=== PATIENT | female | born 1960 | race Caucasian/White ===

== ENCOUNTER 2018-11-26 23:03 | Observation (INO) ==
[2018-11-26] MEDS ORDERED: DiphenhydrAMINE HCL 50 MG/ML VIAL IV STA (23:22)
[2018-11-26] MEDS ORDERED: EPINEPHrine INJ 1 MG/ML AMP IM STA (23:22)
[2018-11-26] MEDS ORDERED: ALBUTEROL 0.083% NEBU SOLN 3 ML VIAL INH STA (23:22)
[2018-11-26] MEDS ORDERED: methylPREDNISolone 125 MG/2 ML VIAL IV STA (23:22)
[2018-11-26] MEDS ORDERED: FAMOTIDINE 20MG/5ML IV PUSH IV STA (23:22)
[2018-11-26 23:36] LABS: Basophils # (auto) 0.01 K/uL (0-0.2); Basophils % (auto) 0.1 %; Eosinophils # (auto) 0.23 K/uL (0-0.5); Eosinophils % (auto) 2.9 %; Hematocrit (blood only) 41.9 % (37-47); Hemoglobin 13.9 g/dL (12.0-16.0); Immature Granulocytes # (auto) 0.03 K/uL (0.00-0.02); Immature Granulocytes % (auto) 0.4 %; Lymphocytes # (auto) 1.63 K/uL (1.2-3.4); Lymphocytes % (auto) 20.9 %; Mean Corpuscular Hgb Conc 33.2 g/dL (32-36); Mean Corpuscular Volume 90.1 fL (80-100); Mean Platelet Volume 8.7 fL (7.4-10.4); Monocytes % (auto) 5.1 %; Neutrophils # (auto) 5.51 K/uL (1.4-6.5); Neutrophils % (auto) 70.6 %; Platelet Count 206 K/uL (130-400); RDW Coefficient of Variation 13.4 % (11.5-14.5); RDW Standard Deviation 43.6 fL (36.4-46.3); Red Blood Count 4.65 M/uL (4.2-5.4); White Blood Count 7.81 K/uL (4.8-10.8)
[2018-11-26 23:55] LABS: Alanine Aminotransferase 23 U/L (12-78); Albumin Level 3.6 gm/dl (3.4-5.0); Aspartate Aminotransferase 13 U/L (15-37); BUN Creatinine Ratio 24.5 (10-20); Blood Urea Nitrogen 24 mg/dl (7-18); Calcium 9.8 mg/dl (8.5-10.1); Carbon Dioxide 25 mmol/L (21-32); Chloride 109 mmol/L (98-107); Creatinine Clr Calc Pharmacy 72.3 ml/min; Est GFR (African American) 71.8; Est GFR (Non-African American) 61.9; Glucose 144 mg/dl (70-99); Potassium 4.1 mmol/L (3.5-5.1); Sodium 138 mmol/L (136-145)
[2018-11-27] LABS: Alkaline Phosphatase 88 U/L (45-117); Bilirubin,Total 0.3 mg/dl (0.2-1); Globulin 3.7 gm/dl (2.5-4.0); Total Protein 7.3 gm/dl (6.4-8.2); Troponin I < 0.015 ng/ml (0-0.045)
--- NOTE | 2018-11-27 01:24 | Emergency Department Note ---
Entered by Casie Jain acting as a scribe for History of Present Illness General Chief complaint: Allergic Reaction Stated complaint: DIFFICULTY BREATHING, ALLERGIC REACTION Source: patient Mode of arrival: ambulatory Limitations: no limitations History of Present Illness Onset (ago): hour(s) 1 Location: mouth Radiation: non-radiation Pain Consistency: + constant Relieved By: + none Exacerbated By: + none Associated symptoms: + chest pain Treatments prior to arrival: none The patient is a 58 year old female who presents to the Emergency Room with complaints of a possible allergic reaction. She states she went to bed around 2130 this evening and woke up around 2230 feeling unable to breathe and experiencing some transient upper back pain. She notes she took 2 Advil liquid gels prior to going to sleep for arthritis pain, and states she has never taken that type of medication before. She reports she feels like her throat is swollen shut and she is having difficulty speaking and breathing. Denies any rash or pruritus. Is on lisinopril. No other new exposures reported. No recent fevers or trauma. Home Medications Home Medications Medication Instructions Recorded Confirmed Type aspirin 81 mg PO DAILY 11/27/18 11/27/18 History furosemide 20 mg PO DAILY PRN 11/27/18 11/27/18 History lisinopril 10 mg PO DAILY 11/27/18 11/27/18 History lorazepam 1 mg PO Q6 PRN 11/27/18 11/27/18 History omeprazole 20 mg PO DAILY PRN 11/27/18 11/27/18 History rosuvastatin 20 mg PO DAILY 11/27/18 11/27/18 History spironolactone 25 mg PO DAILY 11/27/18 11/27/18 History Allergies Allergy/AdvReac Type Severity Reaction Status Date / Time LILIAN Inhibitors Allergy Severe angioedema Verified 11/27/18 02:28 hydrochlorothiazide Allergy Unknown Unknown Verified 11/27/18 01:39 naproxen Allergy Unknown Unknown Verified 11/27/18 01:39 Past Med/Surg History Medical History Arthritis Social History Feels Safe at Home: Yes Smoking Status: Never smoker Review of Systems See HPI for pertinent positives & negatives. and A total of 10 systems reviewed and were otherwise negative Physical Exam Vital Signs Vital Signs - 24 hr 11/26/18 23:11 11/26/18 23:41 11/27/18 01:26 Temperature 36.8 C Temperature Source Oral Sepsis Recent Fever Within 48 Hours No Sepsis Action Taken by Nursing No Action Required Pulse Rate 95 H Pulse Rate [Right] 84 87 Respiratory Rate 24 24 16 Respiratory Effort / Characteristics Non-Labored Spontaneous Non-Labored Spontaneous Respiratory Depth Normal Normal Blood Pressure 186/105 H Blood Pressure [Right Arm] 150/74 H 117/62 Blood Pressure Mean 132 Blood Pressure Mean [Right Arm] 99 80 Blood Pressure Position [Right Arm] Sitting Pulse Oximetry 98 98 98 Oxygen Delivery Method Room Air Room Air Room Air 11/27/18 02:37 Temperature Temperature Source Sepsis Recent Fever Within 48 Hours Sepsis Action Taken by Nursing Pulse Rate 88 Pulse Rate [Right] Respiratory Rate 16 Respiratory Effort / Characteristics Respiratory Depth Blood Pressure 119/70 Blood Pressure [Right Arm] Blood Pressure Mean Blood Pressure Mean [Right Arm] Blood Pressure Position [Right Arm] Pulse Oximetry 98 Oxygen Delivery Method Room Air GENERAL: Awake, alert, mildly uncomfortable-appearing sitting up on litter HENT: Normocephalic, atraumatic. Diffuse uvular swelling noted in mouth without deviation. No lymph nodes noted. No stridor but hoarse voice noted. EYES: Normal conjunctiva. Sclera non-icteric. NECK: Supple. No nuchal rigidity. RESPIRATORY: Clear to auscultation. No wheezes. Normal respiratory effort. CARDIAC: Normal rate. Normal rhythm. Extremities warm and well perfused. GI: Soft, non-distended. No tenderness to palpation. No rebound or guarding. RECTAL: Deferred. MUSCULOSKELETAL: Atraumatic. Chest examination reveals no tenderness. No upper back tenderness. LOWER EXTREMITIES: Calves are equal size bilaterally and non-tender. No edema NEURO: Normal sensorium. No sensory or motor deficits noted. No facial droop. SKIN: Warm and dry. No rash or jaundice noted. Course 231: Past medical records reviewed. The patient was evaluated in room A2, and a complete history and physical examination were performed. 0100: I reevaluated the patient. She is resting comfortably. I discussed my recommendation she remain in the hospital for further evaluation and management and she verbalized complete understanding and agreement. 0113: I discussed the patients case with Dr. Cook. The patient will be further evaluated. Consultations Consultation #1: I discussed the patients case with Dr. Cook. The patient will be further evaluated. Time: 01:13 Administered Medications Ioversol (Optiray 320 100ml) 100 ml IV ONCE PRN PRN Reason: Interaction Checking Stop: 12/01/18 03:02 Last Admin: 11/27/18 03:04 Dose: 94 ml Discontinued Medications Albuterol (Ventolin 0.083% 2.5mg/3ml) 2.5 mg INH NOW STA Stop: 11/26/18 23:23 Last Admin: 11/26/18 23:30 Dose: 2.5 mg Diphenhydramine HCl (Benadryl) 50 mg IV NOW STA Stop: 11/26/18 23:23 Last Admin: 11/26/18 23:31 Dose: 25 mg Epinephrine HCl (Epinephrine) 0.3 mg IM NOW STA Stop: 11/26/18 23:23 Last Admin: 11/26/18 23:30 Dose: 0.3 mg Famotidine (Pepcid 20mg Iv Push) 20 mg IV ONE STA Stop: 11/26/18 23:23 Last Admin: 11/26/18 23:30 Dose: 20 mg Methylprednisolone (Solumedrol) 125 mg IV NOW STA Stop: 11/26/18 23:23 Last Admin: 11/26/18 23:31 Dose: 125 mg Medical Decision Making Differential Diagnosis Differential: Allergic Reaction, Urticaria, Anaphylaxis, Angioedema, Epiglotitis , BENCH WORKER, RPA, Goff-Mukesh Syndrome, Toxic Epidermal Necrolysis, Erythema Multiforme, Cellulitis, amongst other etiologies entertained. Medical Records Attestation: I reviewed the patient's medical records. Home Medications Current Medication List: was personally reviewed by me Laboratory Data Attestation: I reviewed the patient's lab results. Result diagrams: 11/26/18 23:25 11/26/18 23:25 Lab Results 11/26/18 11/26/18 Range/Units 23:25 23:25 WBC 7.81 (4.8-10.8) K/uL RBC 4.65 (4.2-5.4) M/uL Hgb 13.9 (12.0-16.0) g/dL Hct 41.9 (37-47) % MCV 90.1 (80-100) fL MCH 29.9 (25-34) pg MCHC 33.2 (32-36) g/dL RDW Std Deviation 43.6 (36.4-46.3) fL RDW Coeff of Gretta 13.4 (11.5-14.5) % Plt Count 206 (130-400) K/uL MPV 8.7 (7.4-10.4) fL Immature Gran % (Auto) 0.4 % Neut % (Auto) 70.6 % Lymph % (Auto) 20.9 % [place] % (Auto) 5.1 % Eos % (Auto) 2.9 % Baso % (Auto) 0.1 % Immature Gran # (Auto) 0.03 H (0.00-0.02) K/uL Neut # (Auto) 5.51 (1.4-6.5) K/uL Lymph # (Auto) 1.63 (1.2-3.4) K/uL [place] # (Auto) 0.40 (0.11-0.59) K/uL Eos # (Auto) 0.23 (0-0.5) K/uL Baso # (Auto) 0.01 (0-0.2) K/uL Sodium 138 (136-145) mmol/L Potassium 4.1 (3.5-5.1) mmol/L Chloride 109 H (98-107) mmol/L Carbon Dioxide 25 (21-32) mmol/L Anion Gap 4.0 (3-11) BUN 24 H (7-18) mg/dl Creatinine 0.99 (0.6-1.2) mg/dl Est Cr Clr Drug Dosing 72.3 ml/min Est GFR ( Amer) 71.8 Est GFR (Non-Af Amer) 61.9 BUN/Creatinine Ratio 24.5 H (10-20) Glucose 144 H (70-99) mg/dl Calcium 9.8 (8.5-10.1) mg/dl Magnesium 1.9 (1.8-2.4) mg/dl Total Bilirubin 0.3 (0.2-1) mg/dl AST 13 L (15-37) U/L ALT 23 (12-78) U/L Alkaline Phosphatase 88 (45-117) U/L Troponin I < 0.015 (0-0.045) ng/ml Total Protein 7.3 (6.4-8.2) gm/dl Albumin 3.6 (3.4-5.0) gm/dl Globulin 3.7 (2.5-4.0) gm/dl Albumin/Globulin Ratio 1.0 (0.9-2) TSH 3.470 (0.300-4.500) uIu/ml Imaging Data Attestation: I personally reviewed and interpreted this imaging study as follows : My Impression: CHEST XRAY No pneumonia, no pneumothorax, no bony injury. NECK XRAY Edema of the epiglottis is seen on X-ray; no foreign body noted. ECG Data Attestation: I personally reviewed and interpreted this ECG as follows: Indication: other (allergic reaction) Rate (beats per minute): 92 Rhythm: normal sinus Findings: + other (normal intervals, normal axis); no PVC, no ST depression and no ST elevation MDM Narrative 58-year-old female with a history of GERD and hypertension presenting today complaining of onset of posterior throat and mouth swelling waking her up shortly prior to arrival. Took for the first time some liquid cap Advil to help with arthritic knee pain, went to bed and woke up with this thorat swelling sensation. States is hard to swallow and that she is hoarse. States she had some transient small amount of posterior upper back pain (gone now) but that resolved and there is no chest pain or shortness of breath. No other rash reported or new exposure. Patient is significantly swollen uvula but no evidence of anterior mouth/lip edema. No uticaria noted or other rash. Given this however did proceed with albuterol treatment, Pepcid, Benadryl, steroids, and intramuscular epinephrine for possible allergic/histamine related response. Not hypotensive. Concern for angioedema. Basic labs and EKG were completed as well as a chest x-ray. Seems less likely to be dissection or PE. EKG and troponin negative and doubt ACS. There are no febrile/infectious symptoms to suggest epiglottitis, RPA, or BENCH WORKER. There is some edema notable on the neck x- ray including some epiglottal thickening. Believe that this is edema. Patient monitored here for 2 hours with very slight improvement on multiple re- evaluations. Given this and the airway concern discussed with [facility] hospitalist for admission for close observation for what seems to be angioedema. Impression & Plan Angioedema, Uvular edema Critical Care Time I have personally spent 35 minutes of critical care time in the direct management of this patient. This includes bedside care, interpretation of diagnostic studies, and testing, discussion with consultants, patient, and family members, and other required patient management activities. These 35 minutes is in excess of all separately billable procedures. Critical Care Time: Yes Total Critical Care Time: 35 Discharge Plan Visit Data Chief Complaint: Allergic Reaction Stated Complaint: DIFFICULTY BREATHING, ALLERGIC REACTION ED Provider: Quincy Fields Discharge Problem: Angioedema, Uvular edema Discharge Instructions Interventions: ED Discharge Assessment Last Done: 11/27/18 02:37 Forms Stand Alone Forms: My [facility] Prescriptions Prescriptions: No Action aspirin 81 mg Tablet,Delayed Release (Dr/Ec) 81 mg PO DAILY RF: 0 spironolactone 25 mg Tablet 25 mg PO DAILY RF: 0 lisinopril 10 mg Tablet 10 mg PO DAILY RF: 0 furosemide 20 mg Tablet 20 mg PO DAILY PRN (Reason: Edema) RF: 0 lorazepam 1 mg Tablet 1 mg PO Q6 PRN (Reason: Anxiety) RF: 0 rosuvastatin 20 mg Tablet 20 mg PO DAILY RF: 0 omeprazole 20 mg Tablet,Delayed Release (Dr/Ec) 20 mg PO DAILY PRN (Reason: Heartburn) RF: 0 Referrals Referrals: Jared Meraz [Primary Care Provider] - The scribe's documentation has been prepared under my direction and personally reviewed by me in its entirety. I confirm that the note above accurately reflects all work, treatment, procedures, and medical decision making performed by me.
[2018-11-27 01:50] LABS: Magnesium 1.9 mg/dl (1.8-2.4)
--- NOTE | 2018-11-27 02:18 | History & Physical Report ---
Date of Service November 27, 2018 Assessment & Plan (1) SOB (shortness of breath): With sensation of throat closure ? Anaphylaxis/angioedema ? NSAIDs, LILIAN inhibitor as possible precipitants Clinical/symptomatic improvement after initial ER intervention Hypertension, stable Systolic murmur hyperlipidemia on statin Rx Hyperglycemia rule out DM OBS Medical telemetry Patient counseled about importance of avoiding other NSAIDs given known history of Naproxen allergy. Appropriate to hold home LILIAN inhibitor given possible angioedema involving the airway, add ACEI to allergy list Substitute Norvasc for BP control Prednisone course Outpatient Allergy consultation TTE RE cardiac murmur, intermittent exertional S OB Check hemoglobin A1c DVT prophylaxis. Lovenox subcu Full code History of Present Illness Chief Complaint: Throat closing, shortness of breath Primary Care Provider: Jared Meraz History obtained from patient, family, and records. Medical history significant for hypertension, hyperlipidemia, urolithiasis. Patient woke up last night with some upper back discomfort. Patient later noted sensation of "throat closing", S OB, trouble swallowing. No actual tongue swelling. No chest pain. No rash, no pruritus. May have had transient symptoms in the past accompanied by tingling sensation on the mouth, spontaneously resolving. Patient noted to be briefly by . Patient had earlier taken nighttime medications along with OTC NSAID pills. Patient has been taking lisinopril for more than 20 years. At the ER, patient received IM epinephrine, Solu-Medrol, Famotidine, Benadryl for possible angioedema/uvulitis. Patient currently feeling better. Medical History as above Surgical History : Urologic procedure, partial hysterectomy Family History : Heart disease, colon cancer, lymphoma, prostate cancer Personal/Social history : Non-smoker, occasional Et[employer] intake, surgical nurse Allergies Allergy/AdvReac Type Severity Reaction Status Date / Time LILIAN Inhibitors Allergy Severe angioedema Verified 11/27/18 02:28 hydrochlorothiazide Allergy Unknown Unknown Verified 11/27/18 01:39 naproxen Allergy Unknown Unknown Verified 11/27/18 01:39 Home Medications Home Medications Medication Instructions Recorded Confirmed Type aspirin 81 mg PO DAILY 11/27/18 11/27/18 History furosemide 20 mg PO DAILY PRN 11/27/18 11/27/18 History lisinopril 10 mg PO DAILY 11/27/18 11/27/18 History lorazepam 1 mg PO Q6 PRN 11/27/18 11/27/18 History omeprazole 20 mg PO DAILY PRN 11/27/18 11/27/18 History rosuvastatin 20 mg PO DAILY 11/27/18 11/27/18 History spironolactone 25 mg PO DAILY 11/27/18 11/27/18 History Past Med/Surg History Medical History Arthritis Social History Current Living Situation: Spouse Other Information That Helps Us Care for You: No Feels Safe at Home: Yes Safety Concerns: Feels Safe At This Time Smoking Status: Never smoker Hx Alcohol Use: No Hx Substance Use: No Beliefs That Will Affect Care: None Preferred Language: [place] Communication Ability: Effective [place] [employer]yer Required: No Review of Systems As per HPI, all 10 systems reviewed, all other ROS negative Physical Exam 2 Vital Signs (Past 24 Hours): Last Vital Signs Temp 36.8 C 11/26/18 23:11 Pulse 87 11/27/18 01:26 Resp 16 11/27/18 01:26 BP 117/62 11/27/18 01:26 Pulse Ox 98 11/27/18 01:26 Physical Exam: GENERAL: Comfortable, slightly anxious, obese, no respiratory distress, no stridor SKIN: Normal color, warm HEENT: [place] palpebral conjunctivae, no ptosis, minimal pharyngeal congestion, moist buccal mucosa NECK : Supple, short, no tenderness CHEST : CTA, no tenderness HEART : RRR, systolic murmur ABDOMEN: Some distention, nontender EXTREMITIES : Minimal LE swelling, no tenderness, no other conspicuous deformities noted NEUROLOGIC : Coherent, no facial asymmetry, no other gross focality Results & Data Laboratory Results Laboratory Results WBC 7.81 K/uL (4.8-10.8) 11/26/18 23:25 RBC 4.65 M/uL (4.2-5.4) 11/26/18 23:25 Hgb 13.9 g/dL (12.0-16.0) 11/26/18 23:25 Hct 41.9 % (37-47) 11/26/18 23:25 MCV 90.1 fL (80-100) 11/26/18 23:25 MCH 29.9 pg (25-34) 11/26/18 23:25 MCHC 33.2 g/dL (32-36) 11/26/18 23:25 RDW Std Deviation 43.6 fL (36.4-46.3) 11/26/18 23:25 RDW Coeff of Gretta 13.4 % (11.5-14.5) 11/26/18 23:25 Plt Count 206 K/uL (130-400) 11/26/18 23:25 MPV 8.7 fL (7.4-10.4) 11/26/18 23:25 Immature Gran % (Auto) 0.4 % 11/26/18 23:25 Neut % (Auto) 70.6 % 11/26/18 23:25 Lymph % (Auto) 20.9 % 11/26/18 23:25 Patrick % (Auto) 5.1 % 11/26/18 23:25 Eos % (Auto) 2.9 % 11/26/18 23:25 Baso % (Auto) 0.1 % 11/26/18 23:25 Immature Gran # (Auto) 0.03 K/uL (0.00-0.02) H 11/26/18 23:25 Neut # (Auto) 5.51 K/uL (1.4-6.5) 11/26/18 23:25 Lymph # (Auto) 1.63 K/uL (1.2-3.4) 11/26/18 23:25 Patrick # (Auto) 0.40 K/uL (0.11-0.59) 11/26/18 23:25 Eos # (Auto) 0.23 K/uL (0-0.5) 11/26/18 23:25 Baso # (Auto) 0.01 K/uL (0-0.2) 11/26/18 23:25 Sodium 138 mmol/L (136-145) 11/26/18 23:25 Potassium 4.1 mmol/L (3.5-5.1) 11/26/18 23:25 Chloride 109 mmol/L (98-107) H 11/26/18 23:25 Carbon Dioxide 25 mmol/L (21-32) 11/26/18 23:25 Anion Gap 4.0 (3-11) 11/26/18 23:25 BUN 24 mg/dl (7-18) H 11/26/18 23:25 Creatinine 0.99 mg/dl (0.6-1.2) 11/26/18 23:25 Est Cr Clr Drug Dosing 72.3 ml/min 11/26/18 23:25 Est GFR ( Amer) 71.8 11/26/18 23:25 Est GFR (Non-Af Amer) 61.9 11/26/18 23:25 BUN/Creatinine Ratio 24.5 (10-20) H 11/26/18 23:25 Glucose 144 mg/dl (70-99) H 11/26/18 23:25 Calcium 9.8 mg/dl (8.5-10.1) 11/26/18 23:25 Magnesium 1.9 mg/dl (1.8-2.4) 11/26/18 23:25 Total Bilirubin 0.3 mg/dl (0.2-1) 11/26/18 23:25 AST 13 U/L (15-37) L 11/26/18 23:25 ALT 23 U/L (12-78) 11/26/18 23:25 Alkaline Phosphatase 88 U/L (45-117) 11/26/18 23:25 Troponin I < 0.015 ng/ml (0-0.045) 11/26/18 23:25 Total Protein 7.3 gm/dl (6.4-8.2) 11/26/18 23:25 Albumin 3.6 gm/dl (3.4-5.0) 11/26/18 23:25 Globulin 3.7 gm/dl (2.5-4.0) 11/26/18 23:25 Albumin/Globulin Ratio 1.0 (0.9-2) 11/26/18 23:25 TSH 3.470 uIu/ml (0.300-4.500) 11/26/18 23:25 Diagnostic Findings Chest x-ray as per my interpretation atelectasis EKG as per my interpretation : Rate 90, NSR, no ischemia Soft tissue neck CT initial read : Patent airway
[2018-11-27] MEDS ORDERED: MoRPHine SULFATE 4 MG/ML 1 ML CARP\\VIAL IV PRN (02:33)
[2018-11-27] MEDS ORDERED: TRAMADOL HCL 50 MG TABLET PO PRN (02:33)
[2018-11-27] MEDS ORDERED: IOVERSOL 100ml IV PRN (03:03)
[2018-11-27] MEDS ORDERED: LORazepam 1 MG TAB PO PRN (03:18)
[2018-11-27] MEDS ORDERED: DEXTROSE 50% 50 ML SYRINGE IV PRN (03:18)
[2018-11-27] MEDS ORDERED: GLUCOSE 10 TABS/TUBE PO PRN (03:18)
[2018-11-27] MEDS ORDERED: PROCHLORPERAZINE 5 MG in SYRINGE 4 ML IV PRN (03:18)
[2018-11-27] MEDS ORDERED: GLUCAGON FOR INJ 1 MG VIAL SQ PRN (03:18)
[2018-11-27] MEDS ORDERED: NITROGLYCERIN SL 0.4 MG/TAB TAB SL PRN (03:18)
[2018-11-27] MEDS ORDERED: ACETAMINOPHEN 325 MG TAB PO PRN (03:18)
[2018-11-27] MEDS ORDERED: CARBOHYDRATES FOR HYPOGLYCEMIA PO PRN (03:18)
[2018-11-27] MEDS ORDERED: NSS + 20MEQ KCL 20 MEQ/1,000 ML BAG IV STA (03:18)
[2018-11-27] MEDS ORDERED: GLUCOSE 40% GEL 15 GM TUBE PO PRN (03:18)
[2018-11-27] MEDS ORDERED: INSULIN GLARGINE SOLOSTAR 100 UNITS/ML 3 ML PEN SC ONE (04:10)
[2018-11-27] MEDS: INSULIN ASPART 100 UNITS/ML 3 ML PEN SC SCH ×5 (05:31→20:35)
[2018-11-27 06:07] LABS: Estimated Average Glucose 126 mg/dl
--- NOTE | 2018-11-27 06:28 | XRay Report ---
XR chest 1V portable HISTORY: 58 years-old Female allergic reaction acute shortness of breath COMPARISON: None available TECHNIQUE: Portable AP view of the chest FINDINGS: Cardiac silhouette is mildly enlarged. There is no pneumothorax, pleural effusion, focal airspace con solidation or overt pulmonary edema. The bones of the chest appear grossly intact. IMPRESSION: No acute process. The above report was generated using voice recognition software. It may contain grammatical, syntax o r spelling errors. Electronically signed by: Juan Barragan M.D. 11/27/2018 6:27 AM
--- NOTE | 2018-11-27 06:33 | XRay Report ---
XR soft tissue neck HISTORY: 58 years-old Female difficulty swallowing acute difficulty swallowing COMPARISON: CT soft tissue neck study of same day TECHNIQUE: 2 views of the soft tissues of the neck FINDINGS: No prevertebral soft tissue swelling. Epiglottis and aryepiglottic folds appear unremarkable. No opaq ue foreign bodies. Degenerative changes of the cervical spine are noted with moderate disc space narr owing at C6-C7. Mild to moderate multilevel spondylitic spurring with facet arthrosis. The imaged shilpa g apices appear clear. IMPRESSION: Unremarkable appearance of the soft tissues of the neck. The above report was generated using voice recognition software. It may contain grammatical, syntax o r spelling errors. Electronically signed by: Juan Barragan M.D. 11/27/2018 6:32 AM
[2018-11-27 06:38] LABS: Eosinophils # (auto) 0.01 K/uL (0-0.5); Eosinophils % (auto) 0.1 %; Hemoglobin 13.5 g/dL (12.0-16.0); Immature Granulocytes # (auto) 0.03 K/uL (0.00-0.02); Immature Granulocytes % (auto) 0.3 %; Lymphocytes # (auto) 0.42 K/uL (1.2-3.4); Lymphocytes % (auto) 4.9 %; Mean Corpuscular Hgb Conc 33.8 g/dL (32-36); Mean Corpuscular Volume 88.9 fL (80-100); Mean Platelet Volume 9.2 fL (7.4-10.4); Monocytes # (auto) 0.04 K/uL (0.11-0.59); Monocytes % (auto) 0.5 %; Neutrophils # (auto) 8.12 K/uL (1.4-6.5); Neutrophils % (auto) 94.2 %; Platelet Count 219 K/uL (130-400); RDW Coefficient of Variation 13.3 % (11.5-14.5); RDW Standard Deviation 43.1 fL (36.4-46.3); White Blood Count 8.62 K/uL (4.8-10.8)
[2018-11-27] MEDS ORDERED: PANTOprazole 40 MG TAB PO PRN (06:45)
--- NOTE | 2018-11-27 07:27 | CT Scan Report ---
CT soft tissue neck w con HISTORY: dysphagia, sore throat TECHNIQUE: Multiaxial CT images of the neck performed following the use of intravenous contrast COMPARISON STUDY: Neck radiograph 11/27/2018. FINDINGS: The visualized brain parenchyma and orbits are unremarkable. The pterygopalatine fossa and parapharyngeal fat spaces are maintained. The prevertebral soft tissues and epiglottis are normal in thickness. The vocal cords are symmetric. Mild thickening within the visualized proximal esophagus wi th mild surrounding inflammatory change/edema. No pneumomediastinum. No pneumothorax. The paranasal s inuses and mastoid air cells are clear. The parotid and submandibular glands are symmetric. No cervic al lymphadenopathy. The thyroid gland enhances normally. The major cervical vessels are widely patent . Mild degenerative disease within the mid to lower cervical spine. Mild thickening/edema within the posterior false vocal cords. The airway remains patent. IMPRESSION: 1. Mild thickening and surrounding edema/inflammatory change within the visualized proximal esophagus . This favors an esophagitis. GI consultation with possible and ostomy is recommended. 2. There is also suggestion of mild thickening/edema within the posterior false focal cords consisten t with a mild pharyngitis. 3. This finding was called/faxed to the emergency Department following dictation. Electronically signed by: Osiel Bills M.D. 11/27/2018 7:26 AM
[2018-11-27 08:30] LABS: Hematocrit (blood only) 41.7 % (37-47); Mean Corpuscular Hgb Conc 33.6 g/dL (32-36); Mean Corpuscular Volume 88.7 fL (80-100); Platelet Count 220 K/uL (130-400); RDW Coefficient of Variation 13.2 % (11.5-14.5); RDW Standard Deviation 42.9 fL (36.4-46.3); White Blood Count 8.09 K/uL (4.8-10.8)
[2018-11-27 08:48] LABS: Partial Thromboplastin Time 25.7 Seconds (21.0-31.0); Prothrombin Time 10.4 Seconds (9.0-12.0)
[2018-11-27 08:58] LABS: Creatinine Clr Calc Pharmacy 72.3 ml/min; Est GFR (African American) 71.8; Est GFR (Non-African American) 61.9
--- NOTE | 2018-11-27 08:59 | Gastrointestinal Consultation ---
Date of Consultation November 27, 2018 Assessment & Plan (1) Esophagitis: 58 year old female who presents to the ED w/ epigastric/back pain, SOB, inability to tolerate secretions and subjective airway edema one hour after using Advil liquid gel then laying supine. Evaluation in the ED w/ edematous uvula and was treated w/ IM epinephrine, Solu-Medrol, Famotidine, Benadryl for possible angioedema/uvuitis. CT neck w/ evidence of esophagitis and pharyngitis. This AM she notes near resolution of her symptoms and tolerated a regular breakfast. DDX: pill esophagitis, angioedema, EOE, stricture, ring etc. - We are unable to perform endoscopy today as she ate regular breakfast this AM - Would recommend Prilosec 20 mg twice daily - No NSAIDs - GERD dietary/lifestyle changes - Will discuss EGD early next week with attending, Friday? - GI to sign off. Thank you for allowing us to participate in the care of this patient. Please call with any acute changes, questions or concerns. Please see addendum below with additional recommendation from my supervising physician. Present on Admission?: Yes Supervising Physician Co-Signing Physician Notes I performed a history and physical examination of the patient, including specifically on physical exam - soft, nontender abdomen. I have discussed the patient's management with . Please refer to the nurse practitioner's note for the documented findings and plan of care. Patient presented with Angioedema ? related to LILIAN-i , imaging with typical phyryngeal edema with surrounding esophagitis. Due to concern about NSAIDs use. would need EGD to evaluate any pill induced esophagitis once her angioedema resolve due to risk of sedation for EGD. Will arrange EGD in 2 weeks. Meanwhile continue PPI. Patient anyway tolerated PO solid diet with no symptoms. Recall if needed. History of Present Illness Reason for Consultation: esophagitis on CT Requesting Physician: Jesus Alberto Attending Physician: Chang Granda MD History of Present Illness 58 year old female with history of metabolic syndrome, HTN, Ramos's esophagus who presents through the ED for SOB, airway edema - GI was asked to evaluate the patient for abnormal CT imaging. Pt was in her typical state of health. Notes she does not typically have any GI symptoms. Uses prilosec PRN for GERD. Does not have any epigastric pain, regurgitation or dysphagia on a regular basis. Last evening took two advil prior to bed around 9 PM. Has never took this medication before. She immediately went to bed, woke up at 10 PM with sharp epigastric pain, back pain and inability to swallow or manage her secretions. Notes her chela and rough of her mouth felt swollen. Denied any altered sensation of lips/tongue. She took two benadryl and came to the ED. ED note suggestive of inflammation of the uvula and was treated for suspected allergic reaction w/ IM epinephrine, Solu-Medrol, Famotidine, Benadryl. She had immediate relief of her symptoms. Since, denies any difficulty swallowing or pain. No fever, chills, CP, SOB. CT neck: Mild thickening and surrounding edema/inflammatory change within the visualized proximal esophagus. This favors an esophagitis. GI consultation with possible and ostomy is recommended. There is also suggestion of mild thickening/ edema within the posterior false focal cords consistent with a mild pharyngitis. This finding was called/faxed to the emergency Department following dictation. Colonoscopy 2017: normal EGD 2016: irregular z-line, normal stomach and small intestine EGD 2012: Short segment Ramos's esophagus, 38 cm from the incisors. Biopsied. Erythematous and eroded mucosa in the antrum. Biopsied. Normal examined duodenum Colonoscopy 2010: One 2 mm polyp in the sigmoid colon. Resected andretrieved. The exam was otherwise normal to the cecum. EGD 2010: Few small white nummular lesions in esophagealmucosa. This was biopsied to look for eosinophilicesophagitis.Z-line regular, 36 cm from the incisors. This was�biopsied.Hiatus hernia.Normal stomach. This was biopsied.Normal examined duodenum. Allergies Allergy/AdvReac Type Severity Reaction Status Date / Time LILIAN Inhibitors Allergy Severe angioedema Verified 11/27/18 02:28 ibuprofen Allergy Severe angioedema Verified 11/27/18 17:08 furosemide [From Lasix] Allergy Mild possible Unverified 11/27/18 17:09 angioedema hydrochlorothiazide Allergy Unknown Unknown Verified 11/27/18 01:39 naproxen Allergy Unknown Unknown Verified 11/27/18 01:39 Home Medications Home Medications Medication Instructions Recorded Confirmed Type aspirin 81 mg PO DAILY 11/27/18 11/27/18 History furosemide 20 mg PO DAILY PRN 11/27/18 11/27/18 History lisinopril 10 mg PO DAILY 11/27/18 11/27/18 History lorazepam 1 mg PO Q6 PRN 11/27/18 11/27/18 History omeprazole 20 mg PO DAILY PRN 11/27/18 11/27/18 History rosuvastatin 20 mg PO DAILY 11/27/18 11/27/18 History spironolactone 25 mg PO DAILY 11/27/18 11/27/18 History Patient History Medical History Arthritis Social History Current Living Situation: Spouse Other Information That Helps Us Care for You: No Feels Safe at Home: Yes Safety Concerns: Feels Safe At This Time Smoking Status: Never smoker Hx Alcohol Use: No Hx Substance Use: No Beliefs That Will Affect Care: None Preferred Language: Mohawk Communication Ability: Effective Azure Architect Required: No Review of Systems Constitutional: no fever, no chills and no fatigue Respiratory: no cough, no chest congestion and no dyspnea Cardiovascular: no chest pain, no chest pain at rest and no radiating jaw, neck or arm pain Gastrointestinal: no abdominal pain, no belching, no bloating, no early satiety , no heartburn, no nausea, no vomiting, no coffee ground emesis, no hematemesis , no pain with swallowing, no dysphagia, no change in bowel habits, no change in stools, no constipation, no blood in stools and no melena Physical Exam 2 Vital Signs (Past 24 Hours): Last Vital Signs Temp 36.7 C 11/27/18 07:21 Pulse 83 11/27/18 07:21 Resp 20 11/27/18 07:21 BP 164/90 H 11/27/18 07:21 Pulse Ox 94 11/27/18 07:21 Constitutional: well developed, well nourished, cooperative and comfortable; no acute distress Respiratory: normal respiratory effort, lungs clear to auscultation Cardiovascular: Rate/Rhythm: regular rate Heart Sounds: normal S1 and normal S2; no click and no cardiac rub Gastrointestinal (Abdomen): normal bowel sounds, soft, nontender, no hepatosplenomegaly Skin: no rashes, warm and dry Results & Data Laboratory Results 11/27/18 11/27/1819 Range/Units 08:12 08:12 08:12 WBC 8.09 (4.8-10.8) K/uL RBC 4.70 (4.2-5.4) M/uL Hgb 14.0 (12.0-16.0) g/dL Hct 41.7 (37-47) % MCV 88.7 (80-100) fL MCH 29.8 (25-34) pg MCHC 33.6 (32-36) g/dL RDW Std Deviation 42.9 (36.4-46.3) fL RDW Coeff of Gretta 13.2 (11.5-14.5) % Plt Count 220 (130-400) K/uL MPV 9.0 (7.4-10.4) fL Immature Gran % (Auto) % Neut % (Auto) % Lymph % (Auto) % [place] % (Auto) % Eos % (Auto) % Baso % (Auto) % Immature Gran # (Auto) (0.00-0.02) K/uL Neut # (Auto) (1.4-6.5) K/uL Lymph # (Auto) (1.2-3.4) K/uL [place] # (Auto) (0.11-0.59) K/uL Eos # (Auto) (0-0.5) K/uL Baso # (Auto) (0-0.2) K/uL PT 10.4 (9.0-12.0) Seconds INR 1.0 (0.9-1.1) APTT 25.7 (21.0-31.0) Seconds PTT Ratio 1.0 Sodium (136-145) mmol/L Potassium (3.5-5.1) mmol/L Chloride (98-107) mmol/L Carbon Dioxide (21-32) mmol/L Anion Gap (3-11) BUN (7-18) mg/dl Creatinine 0.99 (0.6-1.2) mg/dl Est Cr Clr Drug Dosing 72.3 ml/min Est GFR ( Amer) 71.8 Est GFR (Non-Af Amer) 61.9 BUN/Creatinine Ratio (10-20) Glucose (70-99) mg/dl POC Glucose (70-99) Estimat Average Glucose mg/dl Hemoglobin A1c (4.5-5.6) % Calcium (8.5-10.1) mg/dl Magnesium (1.8-2.4) mg/dl Total Bilirubin (0.2-1) mg/dl AST (15-37) U/L ALT (12-78) U/L Alkaline Phosphatase (45-117) U/L Troponin I (0-0.045) ng/ml Total Protein (6.4-8.2) gm/dl Albumin (3.4-5.0) gm/dl Globulin (2.5-4.0) gm/dl Albumin/Globulin Ratio (0.9-2) Tryptase TSH (0.300-4.500) uIu/ml Complement C4 Hepatitis C Ab Screen 11/27/18 11/27/18 11/27/18 Range/Units 07:33 06:21 06:21 WBC (4.8-10.8) K/uL RBC (4.2-5.4) M/uL Hgb (12.0-16.0) g/dL Hct (37-47) % MCV (80-100) fL MCH (25-34) pg MCHC (32-36) g/dL RDW Std Deviation (36.4-46.3) fL RDW Coeff of Gretta (11.5-14.5) % Plt Count (130-400) K/uL MPV (7.4-10.4) fL Immature Gran % (Auto) % Neut % (Auto) % Lymph % (Auto) % [place] % (Auto) % Eos % (Auto) % Baso % (Auto) % Immature Gran # (Auto) (0.00-0.02) K/uL Neut # (Auto) (1.4-6.5) K/uL Lymph # (Auto) (1.2-3.4) K/uL [place] # (Auto) (0.11-0.59) K/uL Eos # (Auto) (0-0.5) K/uL Baso # (Auto) (0-0.2) K/uL PT (9.0-12.0) Seconds INR (0.9-1.1) APTT (21.0-31.0) Seconds PTT Ratio Sodium (136-145) mmol/L Potassium (3.5-5.1) mmol/L Chloride (98-107) mmol/L Carbon Dioxide (21-32) mmol/L Anion Gap (3-11) BUN (7-18) mg/dl Creatinine (0.6-1.2) mg/dl Est Cr Clr Drug Dosing ml/min Est GFR ( Amer) Est GFR (Non-Af Amer) BUN/Creatinine Ratio (10-20) Glucose (70-99) mg/dl POC Glucose 192 H (70-99) Estimat Average Glucose mg/dl Hemoglobin A1c (4.5-5.6) % Calcium (8.5-10.1) mg/dl Magnesium (1.8-2.4) mg/dl Total Bilirubin (0.2-1) mg/dl AST (15-37) U/L ALT (12-78) U/L Alkaline Phosphatase (45-117) U/L Troponin I (0-0.045) ng/ml Total Protein (6.4-8.2) gm/dl Albumin (3.4-5.0) gm/dl Globulin (2.5-4.0) gm/dl Albumin/Globulin Ratio (0.9-2) Tryptase TSH (0.300-4.500) uIu/ml Complement C4 Pending Hepatitis C Ab Screen Pending 11/27/18 11/27/18 11/27/18 Range/Units 06:21 05:28 03:28 WBC 8.62 (4.8-10.8) K/uL RBC 4.50 (4.2-5.4) M/uL Hgb 13.5 (12.0-16.0) g/dL Hct 40.0 (37-47) % MCV 88.9 (80-100) fL MCH 30.0 (25-34) pg MCHC 33.8 (32-36) g/dL RDW Std Deviation 43.1 (36.4-46.3) fL RDW Coeff of Gretta 13.3 (11.5-14.5) % Plt Count 219 (130-400) K/uL MPV 9.2 (7.4-10.4) fL Immature Gran % (Auto) 0.3 % Neut % (Auto) 94.2 % Lymph % (Auto) 4.9 % [place] % (Auto) 0.5 % Eos % (Auto) 0.1 % Baso % (Auto) 0.0 % Immature Gran # (Auto) 0.03 H (0.00-0.02) K/uL Neut # (Auto) 8.12 H (1.4-6.5) K/uL Lymph # (Auto) 0.42 L (1.2-3.4) K/uL [place] # (Auto) 0.04 L (0.11-0.59) K/uL Eos # (Auto) 0.01 (0-0.5) K/uL Baso # (Auto) 0.00 (0-0.2) K/uL PT (9.0-12.0) Seconds INR (0.9-1.1) APTT (21.0-31.0) Seconds PTT Ratio Sodium (136-145) mmol/L Potassium (3.5-5.1) mmol/L Chloride (98-107) mmol/L Carbon Dioxide (21-32) mmol/L Anion Gap (3-11) BUN (7-18) mg/dl Creatinine (0.6-1.2) mg/dl Est Cr Clr Drug Dosing ml/min Est GFR ( Amer) Est GFR (Non-Af Amer) BUN/Creatinine Ratio (10-20) Glucose (70-99) mg/dl POC Glucose 215 H 179 H (70-99) Estimat Average Glucose mg/dl Hemoglobin A1c (4.5-5.6) % Calcium (8.5-10.1) mg/dl Magnesium (1.8-2.4) mg/dl Total Bilirubin (0.2-1) mg/dl AST (15-37) U/L ALT (12-78) U/L Alkaline Phosphatase (45-117) U/L Troponin I (0-0.045) ng/ml Total Protein (6.4-8.2) gm/dl Albumin (3.4-5.0) gm/dl Globulin (2.5-4.0) gm/dl Albumin/Globulin Ratio (0.9-2) Tryptase TSH (0.300-4.500) uIu/ml Complement C4 Hepatitis C Ab Screen 11/26/18 11/26/18 11/26/18 Range/Units 23:55 23:25 23:25 WBC (4.8-10.8) K/uL RBC (4.2-5.4) M/uL Hgb (12.0-16.0) g/dL Hct (37-47) % MCV (80-100) fL MCH (25-34) pg MCHC (32-36) g/dL RDW Std Deviation (36.4-46.3) fL RDW Coeff of Gretta (11.5-14.5) % Plt Count (130-400) K/uL MPV (7.4-10.4) fL Immature Gran % (Auto) % Neut % (Auto) % Lymph % (Auto) % [place] % (Auto) % Eos % (Auto) % Baso % (Auto) % Immature Gran # (Auto) (0.00-0.02) K/uL Neut # (Auto) (1.4-6.5) K/uL Lymph # (Auto) (1.2-3.4) K/uL [place] # (Auto) (0.11-0.59) K/uL Eos # (Auto) (0-0.5) K/uL Baso # (Auto) (0-0.2) K/uL PT (9.0-12.0) Seconds INR (0.9-1.1) APTT (21.0-31.0) Seconds PTT Ratio Sodium 138 (136-145) mmol/L Potassium 4.1 (3.5-5.1) mmol/L Chloride 109 H (98-107) mmol/L Carbon Dioxide 25 (21-32) mmol/L Anion Gap 4.0 (3-11) BUN 24 H (7-18) mg/dl Creatinine 0.99 (0.6-1.2) mg/dl Est Cr Clr Drug Dosing 72.3 ml/min Est GFR ( Amer) 71.8 Est GFR (Non-Af Amer) 61.9 BUN/Creatinine Ratio 24.5 H (10-20) Glucose 144 H (70-99) mg/dl POC Glucose (70-99) Estimat Average Glucose 126 mg/dl Hemoglobin A1c 6.0 H (4.5-5.6) % Calcium 9.8 (8.5-10.1) mg/dl Magnesium 1.9 (1.8-2.4) mg/dl Total Bilirubin 0.3 (0.2-1) mg/dl AST 13 L (15-37) U/L ALT 23 (12-78) U/L Alkaline Phosphatase 88 (45-117) U/L Troponin I < 0.015 (0-0.045) ng/ml Total Protein 7.3 (6.4-8.2) gm/dl Albumin 3.6 (3.4-5.0) gm/dl Globulin 3.7 (2.5-4.0) gm/dl Albumin/Globulin Ratio 1.0 (0.9-2) Tryptase Pending TSH 3.470 (0.300-4.500) uIu/ml Complement C4 Hepatitis C Ab Screen 11/26/18 Range/Units 23:25 WBC 7.81 (4.8-10.8) K/uL RBC 4.65 (4.2-5.4) M/uL Hgb 13.9 (12.0-16.0) g/dL Hct 41.9 (37-47) % MCV 90.1 (80-100) fL MCH 29.9 (25-34) pg MCHC 33.2 (32-36) g/dL RDW Std Deviation 43.6 (36.4-46.3) fL RDW Coeff of Gretta 13.4 (11.5-14.5) % Plt Count 206 (130-400) K/uL MPV 8.7 (7.4-10.4) fL Immature Gran % (Auto) 0.4 % Neut % (Auto) 70.6 % Lymph % (Auto) 20.9 % [place] % (Auto) 5.1 % Eos % (Auto) 2.9 % Baso % (Auto) 0.1 % Immature Gran # (Auto) 0.03 H (0.00-0.02) K/uL Neut # (Auto) 5.51 (1.4-6.5) K/uL Lymph # (Auto) 1.63 (1.2-3.4) K/uL [place] # (Auto) 0.40 (0.11-0.59) K/uL Eos # (Auto) 0.23 (0-0.5) K/uL Baso # (Auto) 0.01 (0-0.2) K/uL PT (9.0-12.0) Seconds INR (0.9-1.1) APTT (21.0-31.0) Seconds PTT Ratio Sodium (136-145) mmol/L Potassium (3.5-5.1) mmol/L Chloride (98-107) mmol/L Carbon Dioxide (21-32) mmol/L Anion Gap (3-11) BUN (7-18) mg/dl Creatinine (0.6-1.2) mg/dl Est Cr Clr Drug Dosing ml/min Est GFR ( Amer) Est GFR (Non-Af Amer) BUN/Creatinine Ratio (10-20) Glucose (70-99) mg/dl POC Glucose (70-99) Estimat Average Glucose mg/dl Hemoglobin A1c (4.5-5.6) % Calcium (8.5-10.1) mg/dl Magnesium (1.8-2.4) mg/dl Total Bilirubin (0.2-1) mg/dl AST (15-37) U/L ALT (12-78) U/L Alkaline Phosphatase (45-117) U/L Troponin I (0-0.045) ng/ml Total Protein (6.4-8.2) gm/dl Albumin (3.4-5.0) gm/dl Globulin (2.5-4.0) gm/dl Albumin/Globulin Ratio (0.9-2) Tryptase TSH (0.300-4.500) uIu/ml Complement C4 Hepatitis C Ab Screen
[2018-11-27] MEDS ORDERED: ASPIRIN 81 MG ECTAB PO SCH (09:00)
[2018-11-27] MEDS ORDERED: ENOXAPARIN INJ 40 MG/0.4 ML SYR SQ SCH (09:00)
[2018-11-27] MEDS: AMLODIPINE BESYLATE 5 MG TAB PO SCH (09:11)
[2018-11-27] MEDS: INSULIN GLARGINE SOLOSTAR 100 UNITS/ML 3 ML PEN SC SCH (09:15)
[2018-11-27] MEDS: predniSONE 10 MG TABLET PO SCH (09:17)
[2018-11-27] MEDS: ROSUVASTATIN CALCIUM 20 MG TAB PO SCH (09:19)
--- NOTE | 2018-11-27 09:44 | Hospitalist Progress Note ---
Date of Service November 27, 2018 Assessment & Plan (1) Angioedema: possible drug related angiodema from: Lisinopril, Ibuprofen - symptoms resolved after being given Solumedrol, Benadryl, Epi at the ER - Lisinopril changed to Norvasc discontinue Ibuprofen, ASA, and advised not to use NSAIDs would also recommend discontinuing Lasix, Spironolactone for now as patient reports her voice changes when she uses Lasix - Prednisone taper starting at 40mg x 1 week at least Cetirizine daily - continue to observe will need referral to Allergy Clinic will need Epi pen (2) Hypertension: Lisinopril changed to Norvasc (3) Prediabetes: a1c 6.0 dietary changes outpatient ff up (4) Dyslipidemia: continue crestor (5) Esophagitis: seen on soft tissue neck CT GI consulted recommend Prilosex 20mg BID outpatient EGD (6) Vocal cord edema: discussed with Dr. Hernandez recommend outpatient Laryngoscopy Subjective ff up for angioedema seen resting in bedside chair, comfortable, not in distress symptoms from yesterday resolved except patient reports she can still feel her throat is "sore in there" denies shortness of breath, dysphagia no pruritus, rashes no other symptoms Physical Exam 2 Vital Signs (Past 24 Hours): Last Vital Signs Temp 36.7 C 11/27/18 07:21 Pulse 83 11/27/18 07:21 Resp 20 11/27/18 07:21 BP 164/90 H 11/27/18 07:21 Pulse Ox 94 11/27/18 07:21 Physical Exam: General- oriented x 3, not in distress, speaks in sentences with no effort or accessory muscle use Eyes- anicteric Mouth- essentially normal Neck- no JVD Lungs- clear breath sounds bilaterally, no rales/wheezes Heart- normal rate, regular rhythm; no murmurs Abdomen- normal bowel sounds, nondistended, soft, nontender Extremities- no pretibial edema, no calf tenderness Neuro- alert, oriented x 3; no gross focal neurologic deficits Skin- warm & dry Results & Data Laboratory Results Laboratory Results - last 24 hr 11/26/18 11/26/18 11/26/18 23:25 23:25 23:55 WBC 7.81 RBC 4.65 Hgb 13.9 Hct 41.9 MCV 90.1 MCH 29.9 MCHC 33.2 RDW Std Deviation 43.6 RDW Coeff of Gretta 13.4 Plt Count 206 MPV 8.7 Immature Gran % (Auto) 0.4 Neut % (Auto) 70.6 Lymph % (Auto) 20.9 [place] % (Auto) 5.1 Eos % (Auto) 2.9 Baso % (Auto) 0.1 Immature Gran # (Auto) 0.03 H Neut # (Auto) 5.51 Lymph # (Auto) 1.63 [place] # (Auto) 0.40 Eos # (Auto) 0.23 Baso # (Auto) 0.01 PT INR APTT PTT Ratio Sodium 138 Potassium 4.1 Chloride 109 H Carbon Dioxide 25 Anion Gap 4.0 BUN 24 H Creatinine 0.99 Est Cr Clr Drug Dosing 72.3 Est GFR ( Amer) 71.8 Est GFR (Non-Af Amer) 61.9 BUN/Creatinine Ratio 24.5 H Glucose 144 H POC Glucose Estimat Average Glucose 126 Hemoglobin A1c 6.0 H Calcium 9.8 Magnesium 1.9 Total Bilirubin 0.3 AST 13 L ALT 23 Alkaline Phosphatase 88 Troponin I < 0.015 Total Protein 7.3 Albumin 3.6 Globulin 3.7 Albumin/Globulin Ratio 1.0 TSH 3.470 Hepatitis C Ab Screen 11/27/18 11/27/18 11/27/18 03:28 05:28 06:21 WBC 8.62 RBC 4.50 Hgb 13.5 Hct 40.0 MCV 88.9 MCH 30.0 MCHC 33.8 RDW Std Deviation 43.1 RDW Coeff of Gretta 13.3 Plt Count 219 MPV 9.2 Immature Gran % (Auto) 0.3 Neut % (Auto) 94.2 Lymph % (Auto) 4.9 [place] % (Auto) 0.5 Eos % (Auto) 0.1 Baso % (Auto) 0.0 Immature Gran # (Auto) 0.03 H Neut # (Auto) 8.12 H Lymph # (Auto) 0.42 L [place] # (Auto) 0.04 L Eos # (Auto) 0.01 Baso # (Auto) 0.00 PT INR APTT PTT Ratio Sodium Potassium Chloride Carbon Dioxide Anion Gap BUN Creatinine Est Cr Clr Drug Dosing Est GFR ( Amer) Est GFR (Non-Af Amer) BUN/Creatinine Ratio Glucose POC Glucose 179 H 215 H Estimat Average Glucose Hemoglobin A1c Calcium Magnesium Total Bilirubin AST ALT Alkaline Phosphatase Troponin I Total Protein Albumin Globulin Albumin/Globulin Ratio TSH Hepatitis C Ab Screen 11/27/18 11/27/18 11/27/18 06:21 07:33 08:12 WBC 8.09 RBC 4.70 Hgb 14.0 Hct 41.7 MCV 88.7 MCH 29.8 MCHC 33.6 RDW Std Deviation 42.9 RDW Coeff of Gretta 13.2 Plt Count 220 MPV 9.0 Immature Gran % (Auto) Neut % (Auto) Lymph % (Auto) [place] % (Auto) Eos % (Auto) Baso % (Auto) Immature Gran # (Auto) Neut # (Auto) Lymph # (Auto) [place] # (Auto) Eos # (Auto) Baso # (Auto) PT INR APTT PTT Ratio Sodium Potassium Chloride Carbon Dioxide Anion Gap BUN Creatinine Est Cr Clr Drug Dosing Est GFR ( Amer) Est GFR (Non-Af Amer) BUN/Creatinine Ratio Glucose POC Glucose 192 H Estimat Average Glucose Hemoglobin A1c Calcium Magnesium Total Bilirubin AST ALT Alkaline Phosphatase Troponin I Total Protein Albumin Globulin Albumin/Globulin Ratio TSH Hepatitis C Ab Screen Neg 11/27/18 11/27/18 11/27/18 08:12 08:12 11:40 WBC RBC Hgb Hct MCV MCH MCHC RDW Std Deviation RDW Coeff of Gretta Plt Count MPV Immature Gran % (Auto) Neut % (Auto) Lymph % (Auto) [place] % (Auto) Eos % (Auto) Baso % (Auto) Immature Gran # (Auto) Neut # (Auto) Lymph # (Auto) [place] # (Auto) Eos # (Auto) Baso # (Auto) PT 10.4 INR 1.0 APTT 25.7 PTT Ratio 1.0 Sodium Potassium Chloride Carbon Dioxide Anion Gap BUN Creatinine 0.99 Est Cr Clr Drug Dosing 72.3 Est GFR ( Amer) 71.8 Est GFR (Non-Af Amer) 61.9 BUN/Creatinine Ratio Glucose POC Glucose 166 H Estimat Average Glucose Hemoglobin A1c Calcium Magnesium Total Bilirubin AST ALT Alkaline Phosphatase Troponin I Total Protein Albumin Globulin Albumin/Globulin Ratio TSH Hepatitis C Ab Screen 11/27/18 16:20 WBC RBC Hgb Hct MCV MCH MCHC RDW Std Deviation RDW Coeff of Gretta Plt Count MPV Immature Gran % (Auto) Neut % (Auto) Lymph % (Auto) [place] % (Auto) Eos % (Auto) Baso % (Auto) Immature Gran # (Auto) Neut # (Auto) Lymph # (Auto) [place] # (Auto) Eos # (Auto) Baso # (Auto) PT INR APTT PTT Ratio Sodium Potassium Chloride Carbon Dioxide Anion Gap BUN Creatinine Est Cr Clr Drug Dosing Est GFR ( Amer) Est GFR (Non-Af Amer) BUN/Creatinine Ratio Glucose POC Glucose 167 H Estimat Average Glucose Hemoglobin A1c Calcium Magnesium Total Bilirubin AST ALT Alkaline Phosphatase Troponin I Total Protein Albumin Globulin Albumin/Globulin Ratio TSH Hepatitis C Ab Screen _ (1) Angioedema Encounter type: initial encounter Qualified Code(s): T78.3XXA - Angioneurotic edema, initial encounter
[2018-11-27] MEDS: ENOXAPARIN INJ 40 MG/0.4 ML SYR SQ SCH (09:52)
[2018-11-27] MEDS: CETIRIZINE HCL 10 MG TABLET PO SCH (12:28)
[2018-11-28] MEDS ORDERED: predniSONE 50 MG TAB PO ONE (08:00)
[2018-11-28] MEDS: AMLODIPINE BESYLATE 5 MG TAB PO SCH (08:11)
[2018-11-28] MEDS: CETIRIZINE HCL 10 MG TABLET PO SCH (08:13)
[2018-11-28] MEDS: predniSONE 10 MG TABLET PO SCH (08:15)
[2018-11-28] MEDS: INSULIN GLARGINE SOLOSTAR 100 UNITS/ML 3 ML PEN SC SCH (08:18)
[2018-11-28] MEDS: INSULIN ASPART 100 UNITS/ML 3 ML PEN SC SCH (08:19)
[2018-11-28] MEDS: ROSUVASTATIN CALCIUM 20 MG TAB PO SCH (08:22)
[2018-11-28] MEDS: ENOXAPARIN INJ 40 MG/0.4 ML SYR SQ SCH (08:23)
--- NOTE | 2018-11-28 10:19 | Hospitalist Progress Note ---
Date of Service November 28, 2018 Assessment & Plan (1) Angioedema: possible drug related angiodema from: Lisinopril, Ibuprofen - symptoms resolved after being given Solumedrol, Benadryl, Epi at the ER - Lisinopril changed to Norvasc discontinue Ibuprofen, ASA, and advised not to use NSAIDs would also recommend discontinuing Lasix, Spironolactone for now as patient reports her voice changes when she uses Lasix - Prednisone taper starting at 40mg x 1 week at least Cetirizine daily x 2 weeks - all symptoms resolved - patient counseled regarding above she verbalized understanding and agreement will need referral to Allergy Clinic will need Epi pen --> patient comfortable to administer (2) Hypertension: Lisinopril changed to Norvasc BP controlled, monitor (3) Prediabetes: a1c 6.0 dietary changes outpatient ff up (4) Dyslipidemia: continue crestor (5) Esophagitis: seen on soft tissue neck CT GI consulted recommend Prilosec 20mg BID outpatient EGD (6) Vocal cord edema: discussed with Dr. Hernandez recommend outpatient Laryngoscopy on Friday11/30/18 Subjective ff up for angioedema resting in chair, in good spirits states she feels better overall, back to baseline denies throat feeling sore/swollen no dyspnea, dysphagia, pruritus, rashes no other symptoms states she is ready and would like to be discharged today Physical Exam 2 Vital Signs (Past 24 Hours): Last Vital Signs Temp 36.7 C 11/28/18 07:59 Pulse 94 H 11/28/18 08:03 Resp 20 11/28/18 07:59 BP 121/75 11/28/18 07:59 Pulse Ox 97 11/28/18 07:59 Physical Exam: General- oriented x 3, not in distress, speaks in sentences with no effort or accessory muscle use Eyes- anicteric Mouth- essentially normal Neck- no JVD Lungs- clear breath sounds, no rales, no wheezing bilaterally Heart- normal rate, regular rhythm; no murmurs Abdomen- normal bowel sounds, nondistended, soft, nontender Extremities- no pretibial edema, no calf tenderness Neuro- alert, oriented x 3; no gross focal neurologic deficits Skin- warm & dry Results & Data Laboratory Results Laboratory Results - last 24 hr 02/01/19 02/01/19 02/01/19 11:40 16:20 20:12 POC Glucose 166 H 167 H 213 H 02/02/19 07:29 POC Glucose 137 H _ (1) Angioedema Encounter type: initial encounter Qualified Code(s): T78.3XXA - Angioneurotic edema, initial encounter
[2018-11-29] MEDS ORDERED: predniSONE 20 MG TAB PO ONE (08:00)
--- NOTE | 2018-11-30 07:45 | Discharge Summary ---
Date of Service November 30, 2018 Admission HPI Per Admitting Provider History obtained from patient, family, and records. Medical history significant for hypertension, hyperlipidemia, urolithiasis. Patient woke up last night with some upper back discomfort. Patient later noted sensation of "throat closing", S OB, trouble swallowing. No actual tongue swelling. No chest pain. No rash, no pruritus. May have had transient symptoms in the past accompanied by tingling sensation on the mouth, spontaneously resolving. Patient noted to be briefly by . Patient had earlier taken nighttime medications along with OTC NSAID pills. Patient has been taking lisinopril for more than 20 years. At the ER, patient received IM epinephrine, Solu-Medrol, Famotidine, Benadryl for possible angioedema/uvulitis. Patient currently feeling better. Medical History as above Surgical History : Urologic procedure, partial hysterectomy Family History : Heart disease, colon cancer, lymphoma, prostate cancer Personal/Social history : Non-smoker, occasional EtOH intake, surgical nurse Admission Exam Per Admitting Provider Vital Signs (Past 24 Hours): Last Vital Signs Temp 36.8 C 11/26/18 23:11 Pulse 87 11/27/18 01:26 Resp 16 11/27/18 01:26 BP 117/62 11/27/18 01:26 Pulse Ox 98 11/27/18 01:26 Physical Exam: GENERAL: Comfortable, slightly anxious, obese, no respiratory distress, no stridor SKIN: Normal color, warm HEENT: [place] palpebral conjunctivae, no ptosis, minimal pharyngeal congestion, moist buccal mucosa NECK : Supple, short, no tenderness CHEST : CTA, no tenderness HEART : RRR, systolic murmur ABDOMEN: Some distention, nontender EXTREMITIES : Minimal LE swelling, no tenderness, no other conspicuous deformities noted NEUROLOGIC : Coherent, no facial asymmetry, no other gross focality Principal Diagnosis ANGIOEDEMA, LIKELY SECONDARY TO LISINOPRIL OR IBUPROFEN Discharge Exam Vital Signs (Past 24 Hours): Last Vital Signs Temp 36.7 C 11/28/18 07:59 Pulse 94 H 11/28/18 08:03 Resp 20 11/28/18 07:59 BP 121/75 11/28/18 07:59 Pulse Ox 97 11/28/18 07:59 Physical Exam: General- oriented x 3, not in distress, speaks in sentences with no effort or accessory muscle use Eyes- anicteric Mouth- essentially normal Neck- no JVD Lungs- clear breath sounds, no rales, no wheezing bilaterally Heart- normal rate, regular rhythm; no murmurs Abdomen- normal bowel sounds, nondistended, soft, nontender Extremities- no pretibial edema, no calf tenderness Neuro- alert, oriented x 3; no gross focal neurologic deficits Discharge Data Allergies Allergy/AdvReac Type Severity Reaction Status Date / Time LILIAN Inhibitors Allergy Severe angioedema Verified 11/27/18 02:28 ibuprofen Allergy Severe angioedema Verified 11/27/18 17:08 furosemide [From Lasix] Allergy Mild possible Unverified 11/27/18 17:09 angioedema hydrochlorothiazide Allergy Unknown Unknown Verified 11/27/18 01:39 naproxen Allergy Unknown Unknown Verified 11/27/18 01:39 Consultations 11/27/18 01:14 ED Decision to Admit Stat 11/27/18 07:41 Consult Otolaryngology (Head and Neck) Routine 11/27/18 07:42 Consult Gastroenterology Routine Ordered Studies 11/27/18 02:15 CT soft tissue neck w con Urgent CT soft tissue neck w con HISTORY: dysphagia, sore throat TECHNIQUE: Multiaxial CT images of the neck performed following the use of intravenous contrast COMPARISON STUDY: Neck radiograph 11/27/2018. FINDINGS: The visualized brain parenchyma and orbits are unremarkable. The pterygopalatine fossa and parapharyngeal fat spaces are maintained. The prevertebral soft tissues and epiglottis are normal in thickness. The vocal cords are symmetric. Mild thickening within the visualized proximal esophagus with mild surrounding inflammatory change/edema. No pneumomediastinum. No pneumothorax. The paranasal sinuses and mastoid air cells are clear. The parotid and submandibular glands are symmetric. No cervical lymphadenopathy. The thyroid gland enhances normally. The major cervical vessels are widely patent. Mild degenerative disease within the mid to lower cervical spine. Mild thickening/edema within the posterior false vocal cords. The airway remains patent. IMPRESSION: 1. Mild thickening and surrounding edema/inflammatory change within the visualized proximal esophagus. This favors an esophagitis. GI consultation with possible and ostomy is recommended. 2. There is also suggestion of mild thickening/edema within the posterior false focal cords consistent with a mild pharyngitis. 3. This finding was called/faxed to the emergency Department following dictation. XR soft tissue neck HISTORY: 58 years-old Female difficulty swallowing acute difficulty swallowing COMPARISON: CT soft tissue neck study of same day TECHNIQUE: 2 views of the soft tissues of the neck FINDINGS: No prevertebral soft tissue swelling. Epiglottis and aryepiglottic folds appear unremarkable. No opaque foreign bodies. Degenerative changes of the cervical spine are noted with moderate disc space narrowing at C6-C7. Mild to moderate multilevel spondylitic spurring with facet arthrosis. The imaged lung apices appear clear. IMPRESSION: Unremarkable appearance of the soft tissues of the neck. XR chest 1V portable HISTORY: 58 years-old Female allergic reaction acute shortness of breath COMPARISON: None available TECHNIQUE: Portable AP view of the chest FINDINGS: Cardiac silhouette is mildly enlarged. There is no pneumothorax, pleural effusion, focal airspace consolidation or overt pulmonary edema. The bones of the chest appear grossly intact. IMPRESSION: No acute process. Hospital Course (1) Angioedema: possible drug related angiodema from: Lisinopril, Ibuprofen - symptoms resolved after being given Solumedrol, Benadryl, Epi at the ER - Lisinopril changed to Norvasc advised to discontinue Ibuprofen, ASA, and advised not to use NSAIDs would also recommend discontinuing Lasix, Spironolactone for now as patient reports her voice changes when she uses Lasix - Prednisone taper starting at 40mg x 1 week Cetirizine daily x 2 weeks - all symptoms resolved - patient counseled regarding above she verbalized understanding and agreement will need referral to Allergy Clinic prescribed with Epi pen --> patient comfortable to administer (2) Hypertension: Lisinopril changed to Norvasc BP controlled, monitor (3) Prediabetes: a1c 6.0 dietary, lifestyle changes advised outpatient ff up (4) Dyslipidemia: continue crestor (5) Esophagitis: seen on soft tissue neck CT GI consulted recommend Prilosec 20mg BID outpatient EGD (6) Vocal cord edema: discussed with Dr. Hernandez could be releated to reflux recommend outpatient Laryngoscopy on Friday11/30/18 Total Time Total Time Spent Total Time Spent (In Minutes): 35 minutes Discharge Plan Discharge Items Patient Disposition: Home - Self-Care Reason For Visit: SOB Discharge Diagnosis: ANGIOEDEMA, LIKELY SECONDARY TO MEDICATION Condition: Good Discharge Goals: Diagnostic testing and Therapeutic intervention Activity: Resume your previous activity Driving/Machine Use Comment: NO DRIVING UNTIL RE-EVALUATED BY PRIMARY CARE PHYSICIAN Non-emergency contact: Primary Care Provider Call non-emergency contact if: you have any medication questions Follow-up/Referrals: Jared Meraz [Primary Care Provider] - 12/02/18 1:05 pm Diet: Carb Consistent or DM2 and Heart Healthy Addtl Provider Instructions: STOP TAKING LISINOPRIL, IBUPROFEN, ASPIRIN OR ANY TYPE OF NSAIDS, LASIX AND SPIRONOLACTONE. ALWAYS TAKE PREDNISONE WITH A FULL STOMACH. CETIRIZINE MAY CAUSE DROWSINESS, DO NOT DRIVE IF YOU EXPERIENCE DROWSINESS WITH ZYRTEC. ALWAYS CARRY YOUR EPIPENS WHEREVER YOU GO. CHECK THE EXPIRATION DATES REGULARLY. IF SYMPTOMS RECUR, USE THE EPIPEN IMMEDIATELY AND CALL . CONSULT WITH YOUR PRIMARY CARE PHYSICIAN PRIOR TO STARTING ANY NEW MEDICATION. Prescriptions: New prednisone 10 mg Tablet 10 mg PO UD Qty: 13 RF: 0 cetirizine 10 mg Tablet 20 mg PO QAM 14 Days Qty: 28 RF: 2 amlodipine [Norvasc] 5 mg Tablet 2.5 mg PO QAM 30 Days Qty: 15 RF: 2 epinephrine [EpiPen] 0.3 mg/0.3 mL auto-injector 0.3 mg IM UD PRN (Reason: bronchodilation) Qty: 3 RF: 1 Continue lorazepam 1 mg Tablet 1 mg PO Q6 PRN (Reason: Anxiety) RF: 0 rosuvastatin 20 mg Tablet 20 mg PO DAILY RF: 0 Changed omeprazole 20 mg Tablet,Delayed Release (Dr/Ec) 20 mg PO BID 30 Days Qty: 0 RF: 1 Discontinued aspirin 81 mg Tablet,Delayed Release (Dr/Ec) 81 mg PO DAILY RF: 0 spironolactone 25 mg Tablet 25 mg PO DAILY RF: 0 lisinopril 10 mg Tablet 10 mg PO DAILY RF: 0 furosemide 20 mg Tablet 20 mg PO DAILY PRN (Reason: Edema) RF: 0 Stand-Alone Forms: [facility] Discharge Orders: Discharge Order (Routine); Ordered 11/28/18 Ordered By: Chang Granda Admission Data Admit Date/Time: 11/27/18 02:17 Attending Provider: Chang Granda Admit Provider: Gonzalez Cook Primary Care Provider: Jared Meraz Other Providers: Gonzalez Cook ; Chris Hernandez ; Ne Tomlin ; Ifrah Paredes ; Shanthi Lyn ; Killian Saez ; Dhara Haley ; Cynthia Bull ; Shnaae Burns ; Armani Christie ; Zana Boogie ; Isa Neri ; Yasmeen Quezada ; Laura Vidal ; Paula Askew ; Marika Brito Service: Telemetry Medical Other Interventions: Discharge Summary Assessment (RN) Last Done: 11/28/18 10:50 DC Date/Time DO NOT enter until pt leaves facility: 11/28/18 12:06
[2018-11-30] MEDS ORDERED: predniSONE 10 MG TABLET PO ONE (08:00)
[2018-12-01] MEDS ORDERED: predniSONE 5 MG TAB PO ONE (08:00)
== END 2018-11-28 12:06 | disposition home or self-care (01) ==
LOC: ED 23:03 → 2N 23:03

== ENCOUNTER 2019-02-24 08:08 | Inpatient (IN) ==
--- NOTE | 2019-01-26 08:29 | History & Physical Report ---
Date of Service January 26, 2019 Date of Surgery: 02-24-19 Assessment & Plan (1) Tricompartment osteoarthritis of right knee: Risks and benefits of procedure discussed in detail today, patient would like to proceed with a Right total knee replacement at [facility] as scheduled. will obtain medical clearance prior to surgery as well as obtain PATs at [facility]. Will place on ASA 81mg po bid x 1 month post op, f/u 2 weeks post op for routine post-operative care and x-ray, sooner if having any problems. will make arrangements for HHPT at the time of discharge. At this point in time, has failed conservative measures and would like to proceed with surgical intervention. History of Present Illness Chief Complaint: Right Knee Pain Primary Care Provider: Jared Meraz Ms Hutchinson is a 58 year old female who complains of right knee pain, presents for pre-op evaluation prior to a right total knee replacement. She presents with pain, crepitus, stiffness and instability on the right side. She states that the symptoms have been chronic non-traumatic and are intermittent. Currently the patient states that the symptoms are moderate-severe. The pain is described as aching, sharp and throbbing. She rates her worst pain as 10/10, currently 5/10. The symptoms are aggravated by daily activities, walking, work activities and repetitive activities. In addition to right knee pain the patient is also experiencing difficulty bending, decreased mobility and weakness. Prior NSAIDs include ibuprofen and Aleve. She has had prior knee arthroscopy as well as previous viscosupplementation injection both in 2016. Patient has had previous therapy. Right Knee Arthroscopic partial medial meniscectomy, partial lateral meniscectomy, chondroplasty medial compartment and patellofemoral compartment on 07/11/[address] Crisostomo. Allergies Allergy/AdvReac Type Severity Reaction Status Date / Time LILIAN Inhibitors Allergy Severe angioedema Verified 01/25/19 13:41 ibuprofen Allergy Severe angioedema Verified 01/25/19 13:41 naproxen Allergy Severe PVC'S Verified 01/25/19 13:41 hydrochlorothiazide Allergy Intermediate PHOTO Verified 01/25/19 13:41 SENSITIVITY REACTION Home Medications Home Medications Medication Instructions Recorded Confirmed Type amlodipine [Norvasc] 2.5 mg PO QAM 30 Days #15 tab 11/28/18 01/25/19 Rx atorvastatin 10 mg PO PM 01/25/19 01/25/19 History cetirizine [Zyrtec] 10 mg PO QAM 01/25/19 01/25/19 History furosemide [Lasix] 20 mg PO DAILY PRN 01/25/19 01/25/19 History omeprazole magnesium [Prilosec OTC] 1 tab PO QAM 01/25/19 01/25/19 History ranitidine HCl [Zantac] 150 mg PO HS 01/25/19 01/25/19 History Past Med/Surg History Medical History Arthritis Barretts esophagus HX OF (EGD'S WNL THE PAST 2 PROCEDURES) GERD (gastroesophageal reflux disease) Gastritis Hyperlipidemia Hypertension Kidney stones Migraine HX OF PVC (premature ventricular contraction) Prediabetes Surgical History History of anesthesia reaction BRADYCARDIA WITH LAP HYSTERECTOMY 2007 History of arthroscopy RT/LEFT KNEE History of colonoscopy History of esophagogastroduodenoscopy (EGD) History of laparoscopy-assisted vaginal hysterectomy History of lithotripsy History of tooth extraction Family History Grandmother (Paternal) Family history of diabetes mellitus Mother Family hx of colon cancer Social History Preferred Language: Venezuelan Communication Ability: Effective 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 Beliefs That Will Affect Care: None Current Living Situation: Spouse Other Information That Helps Us Care for You: No Feels Safe at Home: Yes Safety Concerns: Feels Safe At This Time Smoking Status: Never smoker Hx Alcohol Use: Yes Hx Substance Use: No Review of Systems All systems reviewed & are unremarkable except as noted in HPI & below Constitutional: no fever and no chills Respiratory: no cough and no dyspnea Cardiovascular: no chest pain, no dyspnea and no orthopnea Gastrointestinal: no nausea and no vomiting Musculoskeletal: as per Subjective / HPI Integumentary: no rash and no lesions Physical Exam Vital Signs (Past 24 Hours): Ht: 5ft 3in Wt: 107kg BP: 148/82 Pulse: 74 Constitutional: WD/WN, vitals as above no acute distress Respiratory: normal respiratory effort, lungs clear to auscultation no respiratory distress, no labored breathing and does not use accessory muscles Cardiovascular: RRR, no murmur, no edema Gastrointestinal (Abdomen): normal bowel sounds, soft, nontender, no hepatosplenomegaly Musculoskeletal: Right Knee: She ambulates with a limp, overall varus alignment, there is no erythema or warmth, no atrophy or ecchymosis, +1 effusion, diffuse tenderness to the knee greatest over medial compartment and anterior knee joint, negative patellar apprehension , mild crepitation with motion, oscar's negative, Chemo's positive medial and lateral joint line, Posterior drawer- negative, anterior drawer negative, valgus stress negative, varus stress negative, no extensor lag, pain with active range of motion, Range of motion 0/5/105. No pain with active/passive ROM of ankle. Lower extremity strength normal. Lower extremity neuro-vascular is normal Results & Data Diagnostic Findings Right Knee X-ray from December 2018 showing advanced degenerative changes to the right knee, with narrowing of the medial compartment and patello-femoral joint with patellar spurring noted, there is joint space narrowing of the medial compartment and patello-femoral joint, complete loss of medial compartment, positive for osteophyte formation and subchondral sclerosis noted. overall varus alignment. no acute bony pathology noted. no loose bodies noted.
--- NOTE | 2019-01-26 13:36 | Anesthesiology Consultation ---
Date of Service January 26, 2019 Assessment & Plan (1) Encounter for pre-operative examination: - PCP= 02/01/19= "no contraindications to right total knee replacement. Chart Review Chart Review: Acceptable Risk for Surgery and Patient seen in Pre Admission Testing Teaching & Discussion Pre-Anesthesia Teaching/Discussion Notes: Instructed NPO after midnight before surgery,except medications with 15 cc of water. Medication instructions provided according to the PAT guidelines. History Surgery Operation Date: 02/24/19 13:10 Proposed Procedures p Right Total Knee Arthroplasty - Nabor Crisostomo DO Height/Weight Height: 5 ft 3 in Weight: 109.8 kg Allergies Allergy/AdvReac Type Severity Reaction Status Date / Time LILIAN Inhibitors Allergy Severe angioedema Verified 01/25/19 13:41 ibuprofen Allergy Severe angioedema Verified 01/25/19 13:41 naproxen Allergy Severe PVC'S Verified 01/25/19 13:41 hydrochlorothiazide Allergy Intermediate PHOTO Verified 01/25/19 13:41 SENSITIVITY REACTION Medications Home Medications Medication Instructions Recorded Confirmed Last Taken amlodipine [Norvasc] 2.5 mg PO QAM 30 Days #15 tab 11/28/18 01/25/19 Unknown atorvastatin 10 mg PO PM 01/25/19 01/25/19 Unknown cetirizine [Zyrtec] 10 mg PO QAM 01/25/19 01/25/19 Unknown furosemide [Lasix] 20 mg PO DAILY PRN 01/25/19 01/25/19 Unknown omeprazole magnesium [Prilosec OTC] 1 tab PO QAM 01/25/19 01/25/19 Unknown ranitidine HCl [Zantac] 150 mg PO HS 01/25/19 01/25/19 Unknown Past Medical History Medical History Arthritis Barretts esophagus NO EVIDENCE ON MOST RECENT EGD PER PT GERD (gastroesophageal reflux disease) CONTROLLED Gastritis Hyperlipidemia Hypertension Kidney stones Migraine HX Morbid obesity PVC (premature ventricular contraction) Prediabetes DIET CONTROLLED Past Family History Family History Grandmother (Paternal) Family history of diabetes mellitus Mother Family hx of colon cancer Past Surgical History Surgical History History of arthroscopy B/L KNEE History of colonoscopy History of esophagogastroduodenoscopy (EGD) History of laparoscopy-assisted vaginal hysterectomy History of lithotripsy History of tooth extraction Past Anesthesia History No Family Hx of Anesthesia Complications and Other Post-op bradycardia x 1 episode with lap hysterectomy (2007)- resolved without intervention. History of PONV Yes (MILD X 1 EPISODE) Motion Sickness Screening History of Motion Sickness: No Social History Smoking Status: Never smoker Do You Dip or Chew Tobacco: No Hx Alcohol Use: Yes Alcohol type: beer alcohol intake frequency: holidays/special occasions only Hx Substance Use: No substance use type: does not use Exercise / Class Metabolic Activity III < 4 Walking/Shop/Light housework Review of Systems Patient denies chest pain, shortness of breath, cough, wheezing, palpitations. Physical Exam Vital Signs VITALS BP 143/86 P 69 TEMP 98.0 SP02 99%RA RESP 18 PHYSICAL Full neck and c-spine range of motion. Full TMJ range of motion. TMD 3 finger breaths Mallampati Score 2 Dentition: full dentures on upper; partial on lower Lungs: clear throughout to auscultation Cardiac: regular rate and rhythm, II/ systolic murmur Spine: normal Carotid arteries: negative bruit Extremities: no edema Testing Electrocardiogram Date: 11/26/18 NSR at 92bpm. "Normal." Poor data quality. Chest X-Ray Date: 11/26/18 Findings: + NAD Cardiac silhouette is mildly enlarged. Echocardiogram Date: 11/27/18 EF 65-70%. No RWMA. Grade I DD. Moderate AV sclerosis. Techically difficult study. No significant valvular disease. Stress Test Date: 08/20/17 Type: DSE Stress ECHO negative for inducible ischemia. EF 55-60%. Grade I DD. No significant valvular disease. 104% MPHR. Laboratory Results 01/26/19 14:02 01/26/19 14:02 Blood Type O Positive 01/26/19 14:02 Antibody Screen NEGATIVE 01/26/19 14:02 PT 10.5 Seconds (9.0-12.0) 01/26/19 14:02 INR 1.0 (0.9-1.1) 01/26/19 14:02 APTT 25.4 Seconds (21.0-31.0) 01/26/19 14:02 Hemoglobin A1c 6.1 % (4.5-5.6) H 01/26/19 14:02 Urine Color Yellow 01/26/19 Unknown Urine Appearance Cloudy (Clear) H 01/26/19 Unknown Urine pH 5.0 (4.5-7.5) 01/26/19 Unknown Ur Specific [place] 1.027 (1.000-1.030) 01/26/19 Unknown Urine Protein Negative (Negative) 01/26/19 Unknown Urine Glucose (UA) Negative (Negative) 01/26/19 Unknown Urine Ketones Trace (Negative) H 01/26/19 Unknown Urine Nitrite Negative (Negative) 01/26/19 Unknown Ur Leukocyte Esterase Negative (Negative) 01/26/19 Unknown Urine WBC (Auto) 1-5 /hpf (0-5) 01/26/19 Unknown Urine RBC (Auto) 0-4 /hpf (0-4) 01/26/19 Unknown U Hyaline Cast (Auto) 0 /lpf (0-5) 01/26/19 Unknown U Epithel Cells (Auto) >30 /lpf (0-5) H 01/26/19 Unknown Urine Bacteria (Auto) 1+ (Negative) H 01/26/19 Unknown 01/26/19 Unknown Urine Culture - Final Urine,Clean Catch Three types or organisms present, all moderate counts probable skin gerardo. No further identifications or sensitivities to follow. Surgeon made aware of abnormal UA
--- NOTE | 2019-01-26 13:47 | PAT Medication Instructions ---
Medication Instructions Date of Service January 26, 2019 Home Medications Medication Instructions Recorded amlodipine [Norvasc] 2.5 mg PO QAM 30 Days #15 tab 11/28/18 amlodipine [Norvasc] 2.5 mg PO QAM atorvastatin 10 mg PO PM cetirizine [Zyrtec] 10 mg PO QAM furosemide [Lasix] 20 mg PO DAILY PRN omeprazole magnesium [Prilosec OTC] 1 tab PO QAM ranitidine HCl [Zantac] 150 mg PO HS DO NOT take the morning of surgery cetirizine [Zyrtec] 10 mg PO QAM furosemide [Lasix] 20 mg PO DAILY PRN Take morning of surgery With a small sip of water, OTHERWISE NOTHING TO EAT OR DRINK AFTER MIDNIGHT: amlodipine [Norvasc] 2.5 mg PO QAM omeprazole magnesium [Prilosec OTC] 1 tab PO QAM Take evening before surgery atorvastatin 10 mg PO PM ranitidine HCl [Zantac] 150 mg PO HS Other Notes If you have any questions please call us at [phone] or [phone] or [phone] or [phone]
[2019-01-26 14:38] LABS: Basophils # (auto) 0.02 K/uL (0-0.2); Basophils % (auto) 0.4 %; Eosinophils # (auto) 0.19 K/uL (0-0.5); Eosinophils % (auto) 3.4 %; Hematocrit (blood only) 39.4 % (37-47); Hemoglobin 13.3 g/dL (12.0-16.0); Immature Granulocytes # (auto) 0.01 K/uL (0.00-0.02); Immature Granulocytes % (auto) 0.2 %; Lymphocytes % (auto) 25.1 %; Mean Corpuscular Hgb Conc 33.8 g/dL (32-36); Mean Corpuscular Volume 87.8 fL (80-100); Monocytes # (auto) 0.33 K/uL (0.11-0.59); Monocytes % (auto) 5.9 %; Neutrophils # (auto) 3.63 K/uL (1.4-6.5); Platelet Count 219 K/uL (130-400); RDW Coefficient of Variation 13.6 % (11.5-14.5); RDW Standard Deviation 43.8 fL (36.4-46.3); Red Blood Count 4.49 M/uL (4.2-5.4); White Blood Count 5.58 K/uL (4.8-10.8)
[2019-01-26 14:48] LABS: Albumin Level 3.8 gm/dl (3.4-5.0); BUN Creatinine Ratio 24.1 (10-20); Calcium 9.3 mg/dl (8.5-10.1); Creatinine Clr Calc Pharmacy 80.9 ml/min; Est GFR (African American) 82.8; Est GFR (Non-African American) 71.4; Potassium 3.9 mmol/L (3.5-5.1)
[2019-01-26 15:00] LABS: Partial Thromboplastin Ratio 0.9; Partial Thromboplastin Time 25.4 Seconds (21.0-31.0); Prothrombin Time 10.5 Seconds (9.0-12.0)
[2019-01-26 15:21] LABS: Appearance Urine Cloudy (Clear); Bacteria Urine Automated 1+ (Negative); Bilirubin Urine Negative (Negative); Blood Urine Negative (Negative); Cast Urine Automated 0 /lpf (0-5); Color Urine Yellow; Epithelial Cell Urine Auto >30 /lpf (0-5); Glucose Urine UA Negative (Negative); Ketones Urine Trace (Negative); Leukocyte Esterase Urine Negative (Negative); Nitrite Urine Negative (Negative); Protein Urine Negative (Negative); RBC Urine Automated 0-4 /hpf (0-4); Specific Gravity Urine 1.027 (1.000-1.030); Urobilinogen Urine Negative (Negative)
[2019-01-27 06:13] LABS: Estimated Average Glucose 128 mg/dl; Hemoglobin A1C 6.1 % (4.5-5.6)
[~2019-02-24 08:08] MED LIST: ACETAMINOPHEN 500 MG TAB PO SCH; BUPIVACAINE 0.5 % 5 MG/1 ML PF 10ML VIAL ONE; CEFAZOLIN 2000MG 2,000 MG/15 ML SYR IV SCH; CeleBREX 200 MG CAP PO SCH; FAMOTIDINE 20 MG TAB PO SCH; GABAPENTIN 300 MG x 2 PO SCH; LR 500ML BOLUS, THEN 15ML/HR IV SCH; ROPIVACAINE 0.5% 5 MG/ML 30 ML VIAL ONE; ROPIVACAINE 0.5% HCL/PF 150 MG, BUPIVACAINE 0.5% MPF 30 ML, EPINEPHrine 30MG/30ML (OR U... INFIL SCH; TRANEXAMIC ACID 1,000 MG **IV Intra-op IV SCH; TRANEXAMIC ACID 1,000 MG **IV Pre-op IV SCH; dexAMETHasone 4 MG TAB PO SCH
[2019-02-24] MEDS ORDERED: PROPOFOL IV EMULSION 10 MG/ML 20 ML VIAL IV ONE ×2 (09:27→12:16)
[2019-02-24] MEDS ORDERED: LIDOCAINE HCL 2% 2 ML VIAL/AMP(20MG/ML) INFIL ONE (09:27)
[2019-02-24] MEDS ORDERED: fentaNYL citrate 100 MCG/2 ML VIAL ONE (09:27)
[2019-02-24] MEDS ORDERED: MIDAZOLAM HCL 1 MG/ML 2ML VIAL ONE (09:28)
[2019-02-24] MEDS ORDERED: POVIDONE-IODINE OP SOLN 30 ML BTL ONE (10:12)
[2019-02-24] MEDS ORDERED: BACITRACIN INJ 50,000 UNIT VIAL ONE (10:13)
--- NOTE | 2019-02-24 10:14 | History & Physical Bridge Note ---
Date of Service February 24, 2019 History & Physical Bridge Note I have examined the patient, reviewed the History & Physical and in the interval since the performance of the History & Physical I have noted the following changes of clinical significance: no changes noted
[2019-02-24] MEDS ORDERED: HYDROmorphone INJ 1 MG/ML SYRINGE IV PRN ×2 (10:50→15:00)
[2019-02-24] MEDS ORDERED: PHENYLEPHRINE 100MCG/ML 5ML SYR IV PRN (10:50)
[2019-02-24] MEDS ORDERED: ATROPINE SULFATE 0.1 MG/ML 10ML SYR IV PRN (10:50)
[2019-02-24] MEDS ORDERED: ePHEDrine sulfate 50 MG/ML AMP IV PRN (10:50)
[2019-02-24] MEDS ORDERED: ONDANSETRON INJ 2 MG/ML 2 ML VIAL ONE (12:15)
--- NOTE | 2019-02-24 12:26 | Operative Report ---
Post Operative Report Pre & Post Diagnosis Operation Date: 02/24/19 10:30 Pre-Op Diagnosis: RIGHT KNEE OSTEOARTHRITIS Post-Op Diagnosis: RIGHT KNEE OSTEOARTHRITIS Procedure Operation Date: 02/24/19 10:30 Actual Procedures p Right Total Knee Arthroplasty(Right) utilizing [employer] journey 2 patient matched total knee arthroplasty size 3 femur 3 tibia 15 polyethylene 29 oval patella- Nabor Crisostomo DO Surgeon Nabor Crisostomo DO Rig Superintendent Xiang BELL Estimated Blood Loss 5 Findings Consistent with Post-Op Diagnosis Patient presents with severe end-stage tricompartmental degenerative joint disease of the right knee is been no response to conservative therapy getting physical therapy of inflammatory relative rest she presents with a subchondral sclerosis eburnated bone [id number] moderate to large effusion with marginal osteophytes and bone to bone tricompartmentally with varus alignment Specimens Bone and cartilage Drains Medium bore Hemovac Complications none Disposition Accompanied Patient To Recovery: No Disposition: Recovery Room Indications Patient presents with severe end-stage tricompartmental degenerative joint disease after failed attempts at conservative management failing physical therapy anti-inflammatories relative rest activity modification corticosteroid injections Visco supplementation bracing patient presents for right total knee arthroplasty Description of Procedure After proper prepping and draping of the Right lower extremity anterior midline incision was made over the region of the extensor extensor mechanism after meticulous hemostasis was obtained and maintained in subcutaneous tissues a medial parapatellar incision was made The patella was subluxed lateralward the medial lateral gutter were cleaned from any hypertrophic synovitis and scar tissue of the distal femoral block was placed and the distal femoral osteotomy cut was made subsequently the chamfers anterior and posterior osteotomy cuts were made utilizing the 4-in-1 block the tibia was subsequently subluxed anteriorward medial and ateral meniscal remnants were excised in their entirety remnants of the anterior and posterior cruciate ligaments were excised in their entirety excellent exposure of the proximal tibia was obtained the tibial osteotomy guide was placed on the proximal tibial osteotomy cut was made once again the knee was irrigated with copious amounts of sterile saline solution the patella was subsequently everted lateralward thickened scar tissue around the patella was removed the patella was subsequently cut utilizing a freehand technique and was drilled prepared for final preparation and placement of patella socially flexion-extension gaps were checked and the equal and symmetric trials were placed to the appropriate femoral and tibial trials with poly-spacer being placed for equal flexion and extension gaps and full range of motion including extension to 0 and flexion to 140 the trial components after having been taken to recovery range of motion was subsequently removed meticulous hemostasis was obtained and maintained subsequently a knee block injection of joint cocktail including ropivacaine 0.5% 150 mg. Bupivacaine 0.5% epinephrine 1-200,030 mL's toradol 30 mg dexamethasone 4 mg ketamine 10 mg clonidine 100 micrograms normal saline solution 30 mg was infiltrated into the soft tissues of the posterior knee medial lateral gutters and periosteal synovium special attention was paid to protect neurovascular structures at all times subsequently trial components having been removed the knee was irrigated with sterile saline solution. debris was removed the proximal tibia was subsequently prepared and was made ready for the placement of the tibial component tibial component was also cemented and tamped into position the femoral component was subsequently placed and cemented in the position the patellar component was subsequently cemented in position because hemostasis once again obtained and maintained wound having been thoroughly irrigated with debridement and debridement lavage was performed as well as a medial parapatellar incision closed with #1 Vicryl in interrupted fashion subcutaneous was closed with #2 Vicryl skin was closed with skin clips. PA-C was necessary for prepping and drapping as well as wound closure of deep fascia Sub cutaneous tissue and skin and was necessary for the case. A sterile compressive dressing was placed patient was taken to recovery in stable condition of report dictated by Kranthi I attest to the content of the Intraoperative Record and any orders documented therein. Any exceptions are noted below. I attest to the content of the Intraoperative Record and any orders documented therein. Any exceptions are noted below.
--- NOTE | 2019-02-24 14:05 | XRay Report ---
RIGHT KNEE 2 VIEWS History: Right total knee arthroplasty. Degenerative arthritis. Postop. FINDINGS: The patient is status post a right total knee arthroplasty. The hardware is intact. No frac ture or dislocation. Surgical drains are in place. IMPRESSION: Right total knee arthroplasty. No evidence for hardware complication. Electronically signed by: Osiel Bills M.D. 02/24/2019 2:04 PM
--- NOTE | 2019-02-24 14:17 | Anesthesiology Progress Note ---
Date of Service February 24, 2019 Anesthesia Post Procedure Vital Signs Vital Signs: Temp Pulse Pulse Resp BP Pulse Ox 02/24/19 14:10 37.1 C 57 L 19 105/57 L 94 02/24/19 14:00 60 18 111/57 L 94 02/24/19 13:50 61 18 109/55 L 95 02/24/19 13:40 60 19 115/59 L 95 02/24/19 13:30 66 14 103/55 L 95 02/24/19 13:20 61 18 103/57 L 95 02/24/19 13:12 36.4 C L 67 17 100/51 L 97 02/24/19 08:33 36.9 C 77 20 140/81 97 Transfer of Care Handoff Completed per policy Notes Mental Status: alert / awake / arousable Patient Amnestic to Procedure: Yes Nausea / Vomiting: adequately controlled Pain: adequately controlled Airway Patency, RR, SpO2: stable & adequate BP & HR: stable & adequate Hydration State: stable & adequate Neuraxial Anesthesia: was administered and sensory block is resolving Anesthetic Complications: no major complications apparent
[2019-02-24] MEDS ORDERED: MAGNESIUM HYDROXIDE SUSP 30 ML UDC PO PRN (15:00)
[2019-02-24] MEDS ORDERED: ONDANSETRON INJ 2 MG/ML 2 ML VIAL IV PRN (15:00)
[2019-02-24] MEDS ORDERED: METOCLOPRAMIDE HCL INJ 5 MG/ML 2 ML VIAL IV PRN (15:00)
[2019-02-24] MEDS ORDERED: BISACODYL 10 MG SUPP PR PRN (15:00)
[2019-02-24] MEDS ORDERED: NALOXONE HCL 0.4 MG/1 ML VIAL/CARP IV PRN (15:00)
[2019-02-24] MEDS ORDERED: SODIUM CHLORIDE 0.9% 1000ML 1,000 ML IV SCH (15:40)
[2019-02-24] MEDS: KETOROLAC 30 MG/ML VIAL IV SCH ×2 (17:11→21:02)
[2019-02-24] MEDS: ACETAMINOPHEN 500 MG TAB PO SCH ×2 (17:12→21:00)
[2019-02-24] MEDS: SENNA 8.6 MG TAB PO SCH (20:59)
[2019-02-24] MEDS: ASPIRIN 81 MG ECTAB PO SCH (20:59)
[2019-02-24] MEDS: ATORVASTATIN 10 MG TAB PO SCH (21:00)
[2019-02-24] MEDS: DOCUSATE SODIUM 100 MG CAP PO SCH (21:01)
[2019-02-24] MEDS: CEFAZOLIN 2000MG 2,000 MG/15 ML SYR IV SCH (21:10)
[2019-02-24] MEDS: OXYCODONE HCL IR 5 MG TAB (IMMEDIATE RELEASE) PO PRN (22:30)
[2019-02-25] MEDS: CEFAZOLIN 2000MG 2,000 MG/15 ML SYR IV SCH (04:01)
[2019-02-25] MEDS: KETOROLAC 30 MG/ML VIAL IV SCH ×2 (04:08→08:55)
[2019-02-25] MEDS: ACETAMINOPHEN 500 MG TAB PO SCH ×3 (06:24→17:26)
[2019-02-25 06:41] LABS: Hemoglobin 11.9 g/dL (12.0-16.0); Mean Corpuscular Volume 86.4 fL (80-100); Mean Platelet Volume 8.9 fL (7.4-10.4); Platelet Count 206 K/uL (130-400); RDW Coefficient of Variation 13.1 % (11.5-14.5); RDW Standard Deviation 41.4 fL (36.4-46.3); Red Blood Count 4.05 M/uL (4.2-5.4); White Blood Count 12.82 K/uL (4.8-10.8)
--- NOTE | 2019-02-25 06:51 | Orthopedic Progress Note ---
Date of Service February 25, 2019 Assessment & Plan (1) Status post total right knee replacement: POD #1 s/p Right TKA pt/ot dvt proph with SERGEI/SCD/ASA plan for d/c home with OPPT when stable, likely after PT on Friday. Subjective POD #1 s/p Right TKA denies CP/SOB denies Fever/Chills pain tolerable , currently 2/ Review of Systems Review of Systems: All systems reviewed & are unremarkable except as noted in HPI & below Constitutional: no fever and no chills Physical Exam Constitutional: WD/WN, vitals as above no acute distress Musculoskeletal: Right Knee: NVDI, calf SNT, negative eryn sign. DP palpable, able to wiggle toes/ankle movement without difficulty. dressing clean dry and intact. Vital Signs Temp 36.5 C 02/25/19 02:44 Pulse 54 L 02/25/19 02:44 Resp 16 02/25/19 02:44 BP 108/68 02/25/19 02:44 Pulse Ox 96 02/25/19 02:44 Intake & Output 02/24/19 02/25/19 02/25/19 18:59 06:59 18:59 Intake Total 1933.333 / 2433.33 3 500 / 2433.333 Output Total 25 / 1325 1300 / 1325 Balance 1908.333 / 1108.33 3 -800 / 1108.333 Weight 108.4 kg Intake: IV 1383.333 / 1383.33 3 Lr 1,000 ml @ 15 mls/hr IV . 900 / 900 Q24H YOLIE Rx#:[id number] Nss 1000ML 1,0 00 ml @ 100 mls/ 373.333 / 373.333 hr IV .Q10H SC H Rx#:[id number] Cyklokapron 1, 000 mg In Sodium 110 / 110 Chloride 100 m l @ 660 mls/hr IV TODAY@0600 YOLIE Rx#:[id number] IV Perioperative 550 / 550 Oral 500 / 500 Output: Urine 1000 / 1000 Estimated Blood Loss 5 / 5 Drain Output 20 / 320 300 / 320 Right Knee Hem ovac 20 / 320 300 / 320 Other: # Unmeasured Voi ds 1 Results & Data Vital Signs (Past 12 Hours) Vital Signs Temp Pulse Pulse Resp BP BP Pulse Ox 02/25/19 02:44 36.5 C 54 L 16 108/68 96 05/01/19 22:47 36.6 C 64 16 109/68 96 02/24/19 19:36 36.6 C 74 20 112/77 98 Diagnostic Findings RIGHT KNEE 2 VIEWS History: Right total knee arthroplasty. Degenerative arthritis. Postop. FINDINGS: The patient is status post a right total knee arthroplasty. The hardware is intact. No fracture or dislocation. Surgical drains are in place. IMPRESSION: Right total knee arthroplasty. No evidence for hardware complication.
[2019-02-25 07:06] LABS: BUN Creatinine Ratio 24.1 (10-20); Calcium 9.1 mg/dl (8.5-10.1); Creatinine Clr Calc Pharmacy 87.2 ml/min; Est GFR (African American) 91.5; Est GFR (Non-African American) 78.9; Potassium 4.2 mmol/L (3.5-5.1)
[2019-02-25] MEDS: DOCUSATE SODIUM 100 MG CAP PO SCH ×2 (08:17→21:29)
[2019-02-25] MEDS: ASPIRIN 81 MG ECTAB PO SCH ×2 (08:17→21:29)
[2019-02-25] MEDS: MULTIVITAMIN TAB PO SCH (08:17)
[2019-02-25] MEDS: CETIRIZINE HCL 10 MG TABLET PO SCH (08:17)
[2019-02-25] MEDS: AMLODIPINE BESYLATE 5 MG TAB PO SCH (08:17)
[2019-02-25] MEDS: OXYCODONE HCL IR 5 MG TAB (IMMEDIATE RELEASE) PO PRN ×2 (14:39→21:27)
[2019-02-25] MEDS: CeleBREX 200 MG CAP PO SCH (17:26)
[2019-02-25] MEDS: SENNA 8.6 MG TAB PO SCH (21:29)
[2019-02-25] MEDS: ATORVASTATIN 10 MG TAB PO SCH (21:29)
[2019-02-26] MEDS: ACETAMINOPHEN 500 MG TAB PO SCH ×2 (01:35→09:33)
[2019-02-26] MEDS: OXYCODONE HCL IR 5 MG TAB (IMMEDIATE RELEASE) PO PRN ×2 (03:20→07:14)
--- NOTE | 2019-02-26 07:22 | Orthopedic Progress Note ---
Date of Service February 26, 2019 Assessment & Plan (1) Status post total right knee replacement: POD #2 s/p Right TKA pt/ot dvt proph with SERGEI/SCD/ASA plan for d/c home with OPPT when stable, likely after PT today Subjective POD #2 s/p Right TKA denies CP/SOB denies Fever/Chills pain tolerable , currently 3/10 Physical Exam Physical Exam: Vital Signs Temp 36.5 C 02/25/19 22:53 Pulse 53 L 02/25/19 22:53 Resp 16 02/25/19 22:53 BP 100/66 02/25/19 22:53 Pulse Ox 98 02/25/19 22:53 Intake & Output 02/25/19 02/26/19 02/26/19 18:59 06:59 18:59 Intake Total 1085 / 1685 600 / 1685 Output Total 100 / 300 200 / 300 Balance 985 / 1385 400 / 1385 Intake: Oral 1085 / 1685 600 / 1685 Output: Drain Output 100 / 300 200 / 300 Right Knee Hem ovac 100 / 300 200 / 300 Other: # Unmeasured Voi ds 1 Constitutional: WD/WN, vitals as above no acute distress Musculoskeletal: right knee: NVDI, calf SNT, negative eryn sign. DP palpable, able to wiggle toes/ankle movement without difficulty. GARETH dressing clean dry and intact. expected post-operative bruising noted. hemovac removed Results & Data Vital Signs (Past 12 Hours) Vital Signs Temp Pulse Resp BP Pulse Ox 02/25/19 22:53 36.5 C 53 L 16 100/66 98 Laboratory Results Laboratory Results WBC 12.82 K/uL (4.8-10.8) H 02/25/19 06:18 RBC 4.05 M/uL (4.2-5.4) L 02/25/19 06:18 Hgb 11.9 g/dL (12.0-16.0) L 02/25/19 06:18 Hct 35.0 % (37-47) L 02/25/19 06:18 MCV 86.4 fL (80-100) 02/25/19 06:18 MCH 29.4 pg (25-34) 02/25/19 06:18 MCHC 34.0 g/dL (32-36) 02/25/19 06:18 RDW Std Deviation 41.4 fL (36.4-46.3) 02/25/19 06:18 RDW Coeff of Gretta 13.1 % (11.5-14.5) 02/25/19 06:18 Plt Count 206 K/uL (130-400) 02/25/19 06:18 MPV 8.9 fL (7.4-10.4) 02/25/19 06:18 Immature Gran % (Auto) 0.2 % 01/26/19 14:02 Neut % (Auto) 65.0 % 01/26/19 14:02 Lymph % (Auto) 25.1 % 01/26/19 14:02 [place] % (Auto) 5.9 % 01/26/19 14:02 Eos % (Auto) 3.4 % 01/26/19 14:02 Baso % (Auto) 0.4 % 01/26/19 14:02 Immature Gran # (Auto) 0.01 K/uL (0.00-0.02) 01/26/19 14:02 Neut # (Auto) 3.63 K/uL (1.4-6.5) 01/26/19 14:02 Lymph # (Auto) 1.40 K/uL (1.2-3.4) 01/26/19 14:02 [place] # (Auto) 0.33 K/uL (0.11-0.59) 01/26/19 14:02 Eos # (Auto) 0.19 K/uL (0-0.5) 01/26/19 14:02 Baso # (Auto) 0.02 K/uL (0-0.2) 01/26/19 14:02 PT 10.5 Seconds (9.0-12.0) 01/26/19 14:02 INR 1.0 (0.9-1.1) 01/26/19 14:02 APTT 25.4 Seconds (21.0-31.0) 01/26/19 14:02 PTT Ratio 0.9 01/26/19 14:02 Sodium 139 mmol/L (136-145) 02/25/19 06:18 Potassium 4.2 mmol/L (3.5-5.1) 02/25/19 06:18 Chloride 110 mmol/L (98-107) H 02/25/19 06:18 Carbon Dioxide 23 mmol/L (21-32) 02/25/19 06:18 Anion Gap 7.0 (3-11) 02/25/19 06:18 BUN 20 mg/dl (7-18) H 02/25/19 06:18 Creatinine 0.81 mg/dl (0.6-1.2) 02/25/19 06:18 Est Cr Clr Drug Dosing 87.2 ml/min 02/25/19 06:18 Est GFR ( Amer) 91.5 02/25/19 06:18 Est GFR (Non-Af Amer) 78.9 02/25/19 06:18 BUN/Creatinine Ratio 24.1 (10-20) H 02/25/19 06:18 Glucose 149 mg/dl (70-99) H 02/25/19 06:18 Estimat Average Glucose 128 mg/dl 01/26/19 14:02 Hemoglobin A1c 6.1 % (4.5-5.6) H 01/26/19 14:02 Calcium 9.1 mg/dl (8.5-10.1) 02/25/19 06:18 Albumin 3.8 gm/dl (3.4-5.0) 01/26/19 14:02 Urine Color Yellow 01/26/19 Unknown Urine Appearance Cloudy (Clear) H 01/26/19 Unknown Urine pH 5.0 (4.5-7.5) 01/26/19 Unknown Ur Specific [place] 1.027 (1.000-1.030) 01/26/19 Unknown Urine Protein Negative (Negative) 01/26/19 Unknown Urine Glucose (UA) Negative (Negative) 01/26/19 Unknown Urine Ketones Trace (Negative) H 01/26/19 Unknown Urine Blood Negative (Negative) 01/26/19 Unknown Urine Nitrite Negative (Negative) 01/26/19 Unknown Urine Bilirubin Negative (Negative) 01/26/19 Unknown Urine Urobilinogen Negative (Negative) 01/26/19 Unknown Ur Leukocyte Esterase Negative (Negative) 01/26/19 Unknown Urine WBC (Auto) 1-5 /hpf (0-5) 01/26/19 Unknown Urine RBC (Auto) 0-4 /hpf (0-4) 01/26/19 Unknown U Hyaline Cast (Auto) 0 /lpf (0-5) 01/26/19 Unknown U Epithel Cells (Auto) >30 /lpf (0-5) H 01/26/19 Unknown Urine Bacteria (Auto) 1+ (Negative) H 01/26/19 Unknown Blood Type O Positive 01/26/19 14:02 Antibody Screen NEGATIVE 01/26/19 14:02
[2019-02-26] MEDS: CeleBREX 200 MG CAP PO SCH (08:07)
[2019-02-26] MEDS: ASPIRIN 81 MG ECTAB PO SCH (08:07)
[2019-02-26] MEDS: DOCUSATE SODIUM 100 MG CAP PO SCH (08:07)
[2019-02-26] MEDS: AMLODIPINE BESYLATE 5 MG TAB PO SCH (08:08)
[2019-02-26] MEDS: CETIRIZINE HCL 10 MG TABLET PO SCH (08:08)
[2019-02-26] MEDS: MULTIVITAMIN TAB PO SCH (08:08)
--- NOTE | 2019-02-26 09:09 | Discharge Summary ---
Date of Service Date of Discharge: February 26, 2019 Date of Admission: 02/24/19 Admission HPI Per Admitting Provider Ms Hutchinson is a 58 year old female who complains of right knee pain, presents for pre-op evaluation prior to a right total knee replacement. She presents with pain, crepitus, stiffness and instability on the right side. She states that the symptoms have been chronic non-traumatic and are intermittent. Currently the patient states that the symptoms are moderate-severe. The pain is described as aching, sharp and throbbing. She rates her worst pain as 10/10, currently 5/10. The symptoms are aggravated by daily activities, walking, work activities and repetitive activities. In addition to right knee pain the patient is also experiencing difficulty bending, decreased mobility and weakness. Prior NSAIDs include ibuprofen and Aleve. She has had prior knee arthroscopy as well as previous viscosupplementation injection both in 2015. Patient has had previous therapy. Right Knee Arthroscopic partial medial meniscectomy, partial lateral meniscectomy, chondroplasty medial compartment and patellofemoral compartment on 07/11/[address] Crisostomo. Principal Diagnosis right knee osteoarthritis Discharge Exam Constitutional WD/WN, vitals as above no acute distress Musculoskeletal right knee: NVDI, calf SNT, negative eryn sign. DP palpable, able to wiggle toes/ankle movement without difficulty. GARETH dressing clean dry and intact. expected post-operative bruising noted. Discharge Data Allergies Allergy/AdvReac Type Severity Reaction Status Date / Time LILIAN Inhibitors Allergy Severe angioedema Verified 02/24/19 08:23 ibuprofen Allergy Severe angioedema Verified 02/24/19 08:23 naproxen Allergy Severe PVC'S Verified 02/24/19 08:23 hydrochlorothiazide Allergy Intermediate PHOTO Verified 02/24/19 08:23 SENSITIVITY REACTION Consultations 02/24/19 15:00 Consult Case Management - Discharge Planning Routine Procedures Performed Operation Date: 02/24/19 10:30 Actual Procedures p Right Total Knee Arthroplasty(Right) - Nabor Crisostomo DO Ordered Studies 02/24/19 05:00 US - OR guided needle placemen Routine Hospital Course (1) Status post total right knee replacement: Status post total right knee replacement: POD #2 s/p Right TKA pt/ot dvt proph with SERGEI/SCD/ASA plan for d/c home with OPPT when stable, likely after PT today Patient was a same day admission after undergoing a successful right TKA. She tolerated the procedure well. Post-operatively, her activity was progressed and well tolerated. Please refer to daily progress notes and PT notes for complete details. After exam on 02/26/19, patient felt to be stable for discharge home with HHPT. Patient will f/u in the office in 2 weeks for further evaluation including x-rays and incision check, sooner if having any issues or concerns. Below are pertinent labs/studies during their hospital stay: Laboratory Results WBC 12.82 K/uL (4.8-10.8) H 02/25/19 06:18 RBC 4.05 M/uL (4.2-5.4) L 02/25/19 06:18 Hgb 11.9 g/dL (12.0-16.0) L 02/25/19 06:18 Hct 35.0 % (37-47) L 02/25/19 06:18 MCV 86.4 fL (80-100) 02/25/19 06:18 MCH 29.4 pg (25-34) 02/25/19 06:18 MCHC 34.0 g/dL (32-36) 02/25/19 06:18 RDW Std Deviation 41.4 fL (36.4-46.3) 02/25/19 06:18 RDW Coeff of Gretta 13.1 % (11.5-14.5) 02/25/19 06:18 Plt Count 206 K/uL (130-400) 02/25/19 06:18 MPV 8.9 fL (7.4-10.4) 02/25/19 06:18 Immature Gran % (Auto) 0.2 % 01/26/19 14:02 Neut % (Auto) 65.0 % 01/26/19 14:02 Lymph % (Auto) 25.1 % 01/26/19 14:02 Harlan % (Auto) 5.9 % 01/26/19 14:02 Eos % (Auto) 3.4 % 01/26/19 14:02 Baso % (Auto) 0.4 % 01/26/19 14:02 Immature Gran # (Auto) 0.01 K/uL (0.00-0.02) 01/26/19 14:02 Neut # (Auto) 3.63 K/uL (1.4-6.5) 01/26/19 14:02 Lymph # (Auto) 1.40 K/uL (1.2-3.4) 01/26/19 14:02 Harlan # (Auto) 0.33 K/uL (0.11-0.59) 01/26/19 14:02 Eos # (Auto) 0.19 K/uL (0-0.5) 01/26/19 14:02 Baso # (Auto) 0.02 K/uL (0-0.2) 01/26/19 14:02 PT 10.5 Seconds (9.0-12.0) 01/26/19 14:02 INR 1.0 (0.9-1.1) 01/26/19 14:02 APTT 25.4 Seconds (21.0-31.0) 01/26/19 14:02 PTT Ratio 0.9 01/26/19 14:02 Sodium 139 mmol/L (136-145) 02/25/19 06:18 Potassium 4.2 mmol/L (3.5-5.1) 02/25/19 06:18 Chloride 110 mmol/L (98-107) H 02/25/19 06:18 Carbon Dioxide 23 mmol/L (21-32) 02/25/19 06:18 Anion Gap 7.0 (3-11) 02/25/19 06:18 BUN 20 mg/dl (7-18) H 02/25/19 06:18 Creatinine 0.81 mg/dl (0.6-1.2) 02/25/19 06:18 Est Cr Clr Drug Dosing 87.2 ml/min 02/25/19 06:18 Est GFR ( Amer) 91.5 02/25/19 06:18 Est GFR (Non-Af Amer) 78.9 02/25/19 06:18 BUN/Creatinine Ratio 24.1 (10-20) H 02/25/19 06:18 Glucose 149 mg/dl (70-99) H 02/25/19 06:18 Estimat Average Glucose 128 mg/dl 01/26/19 14:02 Hemoglobin A1c 6.1 % (4.5-5.6) H 01/26/19 14:02 Calcium 9.1 mg/dl (8.5-10.1) 02/25/19 06:18 Albumin 3.8 gm/dl (3.4-5.0) 01/26/19 14:02 Urine Color Yellow 01/26/19 Unknown Urine Appearance Cloudy (Clear) H 01/26/19 Unknown Urine pH 5.0 (4.5-7.5) 01/26/19 Unknown Ur Specific Troy 1.027 (1.000-1.030) 01/26/19 Unknown Urine Protein Negative (Negative) 01/26/19 Unknown Urine Glucose (UA) Negative (Negative) 01/26/19 Unknown Urine Ketones Trace (Negative) H 01/26/19 Unknown Urine Blood Negative (Negative) 01/26/19 Unknown Urine Nitrite Negative (Negative) 01/26/19 Unknown Urine Bilirubin Negative (Negative) 01/26/19 Unknown Urine Urobilinogen Negative (Negative) 01/26/19 Unknown Ur Leukocyte Esterase Negative (Negative) 01/26/19 Unknown Urine WBC (Auto) 1-5 /hpf (0-5) 01/26/19 Unknown Urine RBC (Auto) 0-4 /hpf (0-4) 01/26/19 Unknown U Hyaline Cast (Auto) 0 /lpf (0-5) 01/26/19 Unknown U Epithel Cells (Auto) >30 /lpf (0-5) H 01/26/19 Unknown Urine Bacteria (Auto) 1+ (Negative) H 01/26/19 Unknown Blood Type O Positive 01/26/19 14:02 Antibody Screen NEGATIVE 01/26/19 14:02 Total Time Total Time Spent Total Time Spent (In Minutes): 20 Total Time Includes: Examination of the Patient, Discharge Planning and Medication Reconciliation Discharge Plan Discharge Items Patient Disposition: Home - Self-Care Reason For Visit: RIGHT KNEE OSTEOARTHRITIS Discharge Diagnosis: right total knee replacement Condition: Good Discharge Goals: Decrease discomfort, Improve function and Increase independence Activity: Per 'Additional Instructions' section Lifting: Wait until after follow-up appointment Weightbearing: Right weightbearing Weightbearing Comment: WBAT with walker Non-emergency contact: Primary Care Provider and Surgeon Call non-emergency contact if: you have any medication questions, your temperature is above 101, your wound has increased redness, your wound has increased drainage and your wound pain has increased Follow-up/Referrals: Jared Meraz MD [Primary Care Provider] - Diet: Regular Addtl Provider Instructions: ACTIVITY RECOMMENDATIONS: SELF CARE INSTRUCTIONS AFTER TOTAL KNEE REPLACEMENT A. You may need to continue a physical therapy program after discharge from the hospital. There are several options available to you. Your doctor will assist you in selecting the best one for you. 1. An out-patient facility 2 to 3 times a week for therapy or home therapy. 2. Continue working on all exercises taught to you in the hospital. Your goals should be to increase bending of your knee to 90 degrees and beyond and to fully straighten your knee. B. You may progress at your own pace from walking with a walker or crutches to a cane; then to no assistive devices. C. Make walking a part of your daily routine. Be up as much as comfortable with rest periods throughout the day. Rest with leg elevation is very important. Use the ice wrap frequently for the first 3-4 weeks. D. There are no restrictions on activities. You may ride in a car, shop, participate in director process engineering and all social activities. E. Wear the long elastic stockings (SERGEI hose) 20 hours a day for 2 weeks after surgery. They can be removed several times a day for laundering and for a bath. F. You may shower, no tub baths until cleared by your doctor. SPECIAL CARE INSTRUCTIONS: VERY IMPORTANT TO READ AND REVIEW A. There are a few signs you need to watch for after you are home. Call [facility] if you notice any of the followin. Increased severe knee pain. Some pain is expected especially when you exercise. 2. Increased swelling in your leg or knee; pain or swelling of the calf muscle in either lower leg. 3. Any fluid drainage from the incision. 4. Shortness of breath or chest pain. B. Please call [facility] at if you have any concerns or questions about your operation or recovery. The doctor or his nurse will return your call promptly. C. You must take antibiotics before dental work, bladder, bowel or other surgery. Your doctor will provide you with a permanent care to carry describing this precaution. IMPORTANT: * REMEMBER TO TAKE ASPIRIN, 81 MG, TWICE DAILY FOR 4 WEEKS UNLESS OTHERWISE DIRECTED. THIS IS YOUR BLOOD THINNER. * HIGH RISK PATIENTS MAY BE PRESCRIBED A STRONGER BLOOD THINNER. THIS WILL BE PROVIDED AT DISCHARGE. * CALL IF INCREASED PAIN, REDNESS, DRAINAGE OR FEVER GREATER THAT 101. * WEAR SERGEI HOSE 20 HOURS PER DAY FOR 2 WEEKS. * GARETH Dressing- This is a large suction dressing covering your incision. This will help pull any excess drainage from the wound and allow your incision to heal properly. You may shower with this if you can keep the unit outside of the shower. If any bleeding or leakage is noted please call your doctor's office. This will remain on your incision for 7 days and then should be removed. This can be done yourself or by the home nursing staff if applicable. The entire unit is disposable once removed. Once removed, keep incision clean and dry. If redness or drainage is noted, please call your surgeon. ONCE GARETH IS REMOVED, FOLLOW THESE INSTRUCTIONS: *DERMABOND Prineo- This is a mesh tape dressing that is covered with glue. It should remain in place until the incision is properly healed, usually 10-14 days. This dressing is designed to naturally slough off. You may trim the excess mesh tape as it peels off. Incision may be briefly wet in a shower. Dry immediately by blotting with a clean, dry towel. Do not bath or swim until instructed by your doctor. Do not scratch, rub, or pick at the dressing. Do not apply any topical ointments or lotions until dressing is completely removed and/or instructed by your doctor. There may be a small piece of suture material at one end of your incision. Do not pull or trim this. If it is bothersome or catching on clothing, you may cover it with a band-aid. FOLLOW UP VISIT: If appointment is not already scheduled: Please call [facility] to make a follow-up appointment for 2 weeks after your surgery at . Prescriptions: New celecoxib [Celebrex] 200 mg Capsule 200 mg PO BID 30 Days Qty: 60 RF: 0 aspirin [Ecotrin Low Strength] 81 mg Tablet,Delayed Release (Dr/Ec) 81 mg PO BID 30 Days Qty: 60 RF: 0 acetaminophen [Pain Reliever] 500 mg Tablet 1,000 mg PO Q8H 14 Days Qty: 84 RF: 0 oxycodone 5 mg Tablet 5 - 10 mg PO Q6H PRN (Reason: pain) Qty: 30 RF: 0 multivitamin [Daily-Addison] Tablet 1 tab PO QAM Qty: 30 RF: 0 docusate sodium 100 mg Capsule 100 mg PO BID 10 Days Qty: 20 RF: 0 cefadroxil 500 mg capsule 500 mg PO BID 10 Days Qty: 20 RF: 0 Continued cetirizine [Zyrtec] 10 mg Tablet 10 mg PO QAM RF: 0 ranitidine HCl [Zantac] 150 mg Tablet 150 mg PO HS RF: 0 furosemide [Lasix] 20 mg Tablet 20 mg PO DAILY PRN (Reason: LEG EDEMA) RF: 0 Prilosec OTC 20 mg Tablet,Delayed Release (Dr/Ec) 1 tab PO QAM RF: 0 atorvastatin 10 mg Tablet 10 mg PO PM RF: 0 amlodipine [Norvasc] 5 mg tablet 5 mg PO QAM RF: 0 Stand-Alone Forms: [facility]/Other Patient Handouts: Prediabetes, Diabetes Meal Planning Discharge Orders: Discharge Order (Routine); Ordered 02/26/19 Ordered By: Xiang Edmondson Admission Data Admit Date/Time: 02/24/19 13:19 Attending Provider: Nabor Crisostomo Admit Provider: Nabor Crisostomo Primary Care Provider: Jared Meraz Service: Surgical Services Other Interventions: Discharge Summary Assessment (RN) Last Done: 02/26/19 08:45 Pending Studies at Discharge: No
== END 2019-02-26 10:38 | disposition home or self-care (01) | DRG 470 ==
LOC: ASU 08:08 → 3E 13:19
DX: Z79.899 Other long term (current) drug therapy; Z68.41 Body mass index [BMI] 40.0-44.9, adult; I10 Essential (primary) hypertension; E66.01 Morbid (severe) obesity due to excess calories; M17.11 Unilateral primary osteoarthritis, right knee; E78.5 Hyperlipidemia, unspecified; K21.9 Gastro-esophageal reflux disease without esophagitis

== ENCOUNTER 2021-05-02 07:35 | Observation (INO) ==
--- NOTE | 2021-04-12 11:08 | PAT Medication Instructions ---
Medication Instructions Date of Service April 12, 2021 Home Medications atorvastatin 10 mg PO PM cetirizine [Zyrtec] 10 mg PO QAM omeprazole magnesium [Prilosec OTC] 1 tab PO QAM PRN ascorbic acid (vitamin C) [Vitamin C] 1 g PO QAM chlorthalidone 15 mg PO QPM cholecalciferol (vitamin D3) [Vitamin D3] 25 mcg PO QAM colchicine 0.3 mg PO QAM lorazepam 1 mg PO HS DO NOT take the morning of surgery cetirizine [Zyrtec] 10 mg PO QAM ascorbic acid (vitamin C) [Vitamin C] 1 g PO QAM cholecalciferol (vitamin D3) [Vitamin D3] 25 mcg PO QAM colchicine 0.3 mg PO QAM Take morning of surgery With a small sip of water, OTHERWISE NOTHING TO EAT OR DRINK AFTER MIDNIGHT: omeprazole magnesium [Prilosec OTC] 1 tab PO QAM PRN (if needed) Take evening before surgery atorvastatin 10 mg PO PM chlorthalidone 15 mg PO QPM lorazepam 1 mg PO HS Other Notes If you have any questions please call us at [phone] or [phone] or [phone] or [phone]
--- NOTE | 2021-04-16 08:09 | History & Physical Report ---
Date of Service April 16, 2021 Date of surgery: 05/02/21 Procedure: Left Total Knee Arthroplasty Assessment & Plan (1) Arthritis of knee, left: Risks and benefits of procedure discussed in detail today, patient would like to proceed with a Left total knee replacement at [facility] as scheduled. will obtain medical clearance from Dr Meraz prior to surgery as well as obtain PATs at [facility]. Will place on ASA 81mg po bid x 1 month post op, f/u 2 weeks post op for routine post-operative care and x-ray, sooner if having any problems. will make arrangements for OPPT at the time of discharge. At this point in time, has failed conservative measures and would like to proceed with surgical intervention. The risks and benefits have been discussed including, but not limited to, risk of infection, nerve injury, stiffness, loss of motion, failure to improve, etc. Reasonable outcomes and options of treatment were discussed. An explanation of appropriate alternatives to the procedure that may be advantageous were discussed and their risks and benefits, as well as the risks and benefits of not proceeding with treatment. I offered to answer any additional inquiries concerning the treatment involved. All the patient's questions were answered. The patient is agreeable, understanding of the treatment plan and alternatives, and wishes to proceed with the treatment plan. History of Present Illness Chief Complaint: left knee pain Primary Care Provider: Jared Meraz MD Shanthi is a 60 year old female who complains of left knee pain, presents for pre-op evaluation prior to a left total knee replacement by dr Crisostomo at [facility]. She complains of pain, crepitus, decreased range of motion, instability and stiffness in her left knee. she states that the symptoms have been chronic and non-traumatic. She states that the symptoms occur constantly with intermittent worsening. Currently the patient states that the symptoms are moderate-severe. The pain is described as aching, sharp and throbbing. The symptoms occur continuously. The symptoms are aggravated by ascending stairs, daily activities, first steps while awake walking. Prior NSAIDs include Ibuprofen and Aleve, At this point, her pain is affecting her ADLS and would like to proceed with a left total knee replacement. Allergies Allergy/AdvReac Type Severity Reaction Status Date / Time LILIAN Inhibitors Allergy Severe angioedema Verified 04/10/21 10:47 ibuprofen Allergy Severe angioedema Verified 04/10/21 10:47 naproxen Allergy Severe PVC's Verified 04/10/21 10:47 hydrochlorothiazide AdvReac Intermediate photosensitivity Verified 04/10/21 10:47 reaction Home Medications Medication Instructions Recorded Confirmed Type atorvastatin 10 mg PO PM 01/25/19 04/10/21 History cetirizine [Zyrtec] 10 mg PO QAM 01/25/19 04/10/21 History omeprazole magnesium [Prilosec OTC] 1 tab PO QAM PRN 01/25/19 04/10/21 History ascorbic acid (vitamin C) [Vitamin 1 g PO QAM 07/17/20 04/10/21 History C] chlorthalidone 15 mg PO QPM 07/17/20 04/10/21 History cholecalciferol (vitamin D3) 25 mcg PO QAM 07/17/20 04/10/21 History [Vitamin D3] colchicine 0.3 mg PO QAM 04/10/21 04/10/21 History lorazepam 1 mg PO HS 04/10/21 04/10/21 History Past Med/Surg History Medical History Arthritis Barretts esophagus GERD (gastroesophageal reflux disease) History of COVID-19 09/27/2020 (SYMPTOMS>FEVER, CHILLS, LOSS OF TASTE AND SMELL) History of kidney stones Hx of gastritis Hx of gout RECENT FLARE UP Hx of migraines Hyperlipidemia Hypertension Prediabetes PVC (premature ventricular contraction) Surgical History History of arthroscopy KNEE ?SIDE History of colonoscopy History of esophagogastroduodenoscopy (EGD) History of laparoscopy-assisted vaginal hysterectomy History of lithotripsy History of right knee joint replacement History of tooth extraction Family History Grandmother (Paternal) Family history of diabetes mellitus Mother Family hx of colon cancer Father Family history of diabetes mellitus Other No family history of adverse response to anesthesia Social History Smoking Status: Never smoker Second Hand Exposure: Yes (IN THE PAST); Hx Alcohol Use: Yes Alcohol type: beer Preferred Language: Maldivian Communication Ability: Effective Process Control Supervisor Required: No Beliefs That Will Affect Care: None marital status: Current Living Situation: Spouse Feels Safe at Home: Yes Assistive Devices: Denture - Upper and Glasses Review of Systems Review of Systems: All systems reviewed & are unremarkable except as noted in HPI & below Constitutional: no fever, no chills and no sweats Respiratory: no cough and no dyspnea Cardiovascular: no chest pain, no dyspnea and no orthopnea Gastrointestinal: no abdominal pain, no nausea and no vomiting Musculoskeletal: as per Subjective / HPI Physical Exam Physical Exam: HT: 5ft 3in WT: 99.79kg Constitutional: WD/WN, vitals as above no acute distress Respiratory: normal respiratory effort, lungs clear to auscultation no respiratory distress, no labored breathing and does not use accessory muscles Cardiovascular: RRR, no murmur, no edema Gastrointestinal (Abdomen): normal bowel sounds, soft, nontender, no hepatosplenomegaly Musculoskeletal: Knee: + knee abnormal to inspection (LEFT KNEE: ), + effusion (+1 effusion), + limited ROM of knee (ROM 0/3/110), + knee ROM with crepitation, + joint line tenderness (medial joint line) and + Chemo's sign positive; no deformity, no skin erythema, no ecchymosis, no valgus laxity, no varus laxity, anterior drawer test negative, Jesusita's sign negative and pivot shift test negative Results & Data Results & Data ([facility]) Diagnostic Findings Left Knee X-ray: left knee series confirm advanced degenerative changes to the left knee, greatest medial compartments and patellofemoral joint, showing joint space narrowing, osteophyte formation and subchondral sclerosis. no acute bony pathology noted.
--- NOTE | 2021-04-16 09:32 | Anesthesiology Consultation ---
Date of Service April 16, 2021 Assessment & Plan (1) Encounter for pre-operative examination: - COVID screening: Per assessment on 04/16: Travel screen- Returned from travel to [place] (vacation at [place], no large gatherings). Patient not vaccinated. Preop COVID testing will be > 5 days after return from travel. No known COVID-19 positive contacts or current COVID-19 related symptoms. Surgeon arranging preop COVID testing. Awaiting results. - S/P Right TKA (02/24/19): SAB at L3/L4 (x1 attempt) + PNB at [facility] - PCP office visit (07/28/20): "Patient medically stable for planned procedure" - Cardiology office visit (07/28/20): "Her repeat EKG performed at our clinic today is within normal limits, with a similar morphology to that which was noted in 2017. She does have poor R-wave progression limited to lead V2, but I do not think it meets criteria for an age undetermined septal infarction pattern, and I think it is consistent with her body habitus. I believe the mild nonspecific T- wave inversions noted on EKG performed on 07/21/2020 at [facility] were likely due to lead placement. Utilizing the revised cardiac risk index calculator toll, her estimated rate of myocardial infarction, pulmonary edema, or life-threatening arrhythmia assessed needed needed to be 0.4% (very low risk). I would recommend proceeding with orthopedic surgery without further cardiac testing." - ASA instructions: per surgeon/prescriber Chart Review Chart Review: Acceptable Risk for Surgery (pending surgeon-ordered PCP clearance) and Patient seen in Pre Admission Testing Teaching & Discussion Pre-Anesthesia Teaching/Discussion Notes: Instructed NPO after midnight before surgery,except medications with 15 cc of water. Medication instructions provided according to the PAT guidelines. History Surgery Operation Date: 05/02/21 07:00 Proposed Procedures p Left Total Knee Arthroplasty - Nabor Crisostomo DO Height/Weight Height: 5 ft 3 in Weight: 102.1 kg Allergies Allergy/AdvReac Type Severity Reaction Status Date / Time LILIAN Inhibitors Allergy Severe Angioedema Verified 04/16/21 09:33 ibuprofen Allergy Severe Angioedema Verified 04/16/21 09:33 naproxen AdvReac Severe PVC's Verified 04/16/21 09:33 hydrochlorothiazide AdvReac Intermediate Photosensitivity Verified 04/16/21 09:33 reaction Medications Home Medications Medication Instructions Recorded Confirmed Last Taken atorvastatin 10 mg PO PM 01/25/19 04/10/21 01/18/21 cetirizine [Zyrtec] 10 mg PO QAM 01/25/19 04/10/21 01/18/21 omeprazole magnesium [Prilosec OTC] 1 tab PO QAM PRN 01/25/19 04/10/21 01/18/21 ascorbic acid (vitamin C) [Vitamin 1 g PO QAM 07/17/20 04/10/21 01/18/21 C] chlorthalidone 15 mg PO QPM 07/17/20 04/10/21 01/18/21 cholecalciferol (vitamin D3) 25 mcg PO QAM 07/17/20 04/10/21 01/18/21 [Vitamin D3] colchicine 0.3 mg PO QAM 04/10/21 04/10/21 Unknown lorazepam 1 mg PO HS 04/10/21 04/10/21 Unknown aspirin 325 mg PO BID 04/16/21 04/16/21 Unknown Past Medical History Medical History Arthritis Barretts esophagus GERD (gastroesophageal reflux disease) History of COVID-19 Dx 09/27/2020 > Symptoms at time of fever, chills, loss of taste/smell > resolved History of kidney stones Hx of gastritis Hx of gout Hx of migraines Hyperlipidemia Hypertension Prediabetes PVC (premature ventricular contraction) Exercise / Class Metabolic Activity II 4-5 Yardwork/Stairs/Walk up hill (one FS (no CP, no SOB)) Past Family History Family History Grandmother (Paternal) Family history of diabetes mellitus Mother Family hx of colon cancer Father Family history of diabetes mellitus Other No family history of adverse response to anesthesia Past Surgical History Surgical History History of arthroscopy Right knee History of colonoscopy History of esophagogastroduodenoscopy (EGD) History of laparoscopy-assisted vaginal hysterectomy History of lithotripsy History of right knee joint replacement Right TKA (02/24/19): SAB at L3/L4 (x1 attempt) + PNB at [facility] History of tooth extraction Past Anesthesia History No Hx of Anesthesia Complications and No Family Hx of Anesthesia Complications History of PONV No Hx of PONV and Hx of Motion Sickness Social History Smoking Status: Never smoker Do You Dip or Chew Tobacco: No Hx Alcohol Use: Yes Alcohol type: beer alcohol intake frequency: holidays/special occasions only substance use type: does not use Review of Systems + snoring. No witnessed apnea events. Patient denies chest pain, shortness of breath, dyspnea on exertion, fever, chills, cough, wheezing, palpitations. Physical Exam Vital Signs VITALS BP 124/81 P 69 TEMP 98.1 SP02 97%RA RESP 16 PHYSICAL Full cervical extension range of motion. Full TMJ range of motion. TMD 3 finger breaths Mallampati Score 3 Dentition: full upper plate, lower partial Lungs: clear throughout to auscultation Cardiac: regular rate and rhythm, I/ systolic murmur Spine: normal Carotid arteries: negative bruit Extremities: no edema Lab Results Anesthesia Preop Results Results Anesthesia Widget: WBC 4.69 K/uL (4.8-10.8) L 04/16/21 Hgb 13.7 g/dL (12.0-16.0) 04/16/21 Hct 39.9 % (37-47) 04/16/21 Plt 199 K/uL (130-400) 04/16/21 Na 141 mmol/L (136-145) 04/16/21 K 3.6 mmol/L (3.5-5.1) 04/16/21 Cl 106 mmol/L (98-107) 04/16/21 CO2 28 mmol/L (21-32) 04/16/21 BUN 22 mg/dl (7-18) H 04/16/21 Creat 0.77 mg/dl (0.6-1.2) 04/16/21 Glucose Level 135 mg/dl (70-99) H 04/16/21 PT 10.0 Seconds (9.0-12.0) 04/16/21 PTT 24.7 Seconds (21.0-31.0) 04/16/21 INR 1.0 (0.9-1.1) 04/16/21 HA1c 6.4 % (4.5-5.6) H 04/16/21 Urine Color Yellow 04/16/21 Urine Appearance Clear (Clear) 04/16/21 Urine pH 6.0 (4.5-7.5) 04/16/21 Urine Specific [place] 1.013 (1.000-1.030) 04/16/21 Urine Protein Negative (Negative) 04/16/21 Urine Glucose (UA) Negative (Negative) 04/16/21 Urine Ketones Negative (Negative) 04/16/21 Urine Blood Negative (Negative) 04/16/21 Urine Nitrite Negative (Negative) 04/16/21 Urine Bilirubin Negative (Negative) 04/16/21 Urine Urobilinogen Negative (Negative) 04/16/21 Urine Leukocyte Esterase Negative (Negative) 04/16/21 Blood Type O Positive 04/16/21 Antibody Screen NEGATIVE 04/16/21 Testing Electrocardiogram Date: 10/09/20 Findings: + NSR @ (89) Chest X-Ray Date: 07/21/20 Findings: + NAD Echocardiogram Date: 11/27/18 EF 65-70%. No RWMA. Grade I DD. Moderate AV sclerosis. Techically difficult study. No significant valvular disease.
[~2021-05-02 07:35] MED LIST changes: -BUPIVACAINE 0.5 % 5 MG/1 ML PF 10ML VIAL ONE; -CEFAZOLIN 2000MG 2,000 MG/15 ML SYR IV SCH; -CeleBREX 200 MG CAP PO SCH; -GABAPENTIN 300 MG x 2 PO SCH; +GABAPENTIN 600 MG DOSE PO SCH; +METOCLOPRAMIDE HCL 10 MG TABLET PO SCH; -ROPIVACAINE 0.5% 5 MG/ML 30 ML VIAL ONE; -ROPIVACAINE 0.5% HCL/PF 150 MG, BUPIVACAINE 0.5% MPF 30 ML, EPINEPHrine 30MG/30ML (OR U... INFIL SCH; +ROPIVACAINE 0.5% HCL/PF 150 MG, BUPIVACAINE 0.75% MPF 20 ML, EPINEPHrine 30MG/30ML (OR ... INSTIL SCH; +Scopolamine 1 MG TDSY TD SCH; +[UNRECOGNIZED DRUG - REMARK] SCH; +ceFAZolin 2000MG 2,000 MG/15 ML SYR IV SCH
[2021-05-02] MEDS ORDERED: BUPIVACAINE 0.5 % 5 MG/1 ML PF 10ML VIAL ONE (07:53)
[2021-05-02] MEDS ORDERED: DEXAMETHASONE SOD INJ 4 MG/ML VIAL ONE (07:53)
[2021-05-02] MEDS ORDERED: EPINEPHrine INJ 1 MG/ML AMP ONE (07:53)
[2021-05-02] MEDS ORDERED: BUPIVACAINE 0.25% 30 ML VIAL ONE (07:53)
--- NOTE | 2021-05-02 07:58 | History & Physical Bridge Note ---
Date of Service May 02, 2021 History & Physical Bridge Note I have examined the patient, reviewed the History & Physical and in the interval since the performance of the History & Physical I have noted the following changes of clinical significance: no changes noted
[2021-05-02] MEDS ORDERED: fentaNYL citrate 100 MCG/2 ML VIAL ONE (08:21)
[2021-05-02] MEDS ORDERED: MIDAZOLAM HCL 1 MG/ML 2ML VIAL ONE ×2 (08:21)
[2021-05-02] MEDS ORDERED: PHENYLEPHRINE 100MCG/ML 5ML SYR ONE (08:46)
[2021-05-02] MEDS ORDERED: ePHEDrine sulfate 50 MG/ML SYR ONE (08:46)
[2021-05-02] MEDS ORDERED: PROPOFOL IV EMULSION 10 MG/ML 20 ML VIAL IV ONE (08:46)
[2021-05-02] MEDS ORDERED: LIDOCAINE 2% 2 ML VIAL/AMP(20MG/ML) INFIL ONE (08:46)
[2021-05-02] MEDS ORDERED: ROPIVACAINE 0.5% HCL/PF 150 MG, BUPIVACAINE 0.75% MPF 20 ML, EPINEPHrine 30MG/30ML (OR ... INSTIL ONE (09:00)
[2021-05-02] MEDS ORDERED: fentaNYL citrate 100 MCG/2 ML VIAL IV PRN (09:46)
[2021-05-02] MEDS ORDERED: ePHEDrine sulfate 50 MG/ML AMP IV PRN (09:46)
[2021-05-02] MEDS ORDERED: ONDANSETRON INJ 2 MG/ML 2 ML VIAL IV PRN ×2 (09:46→15:41)
[2021-05-02] MEDS ORDERED: ATROPINE SULFATE 0.1 MG/ML 10ML SYR IV PRN (09:46)
--- NOTE | 2021-05-02 11:02 | Operative Report ---
Post Operative Report Pre & Post Diagnosis Operation Date: 05/02/21 10:00 Pre-Op Diagnosis: Unilateral Primary Osteoarthritis Knee Left Post-Op Diagnosis: Unilateral Primary Osteoarthritis Knee Left I identified the patient and participated in the time-out.: Yes Procedure Operation Date: 05/02/21 10:00 Actual Procedures p Left Total Knee Arthroplasty(Left) utilizing Fletcher & NephLoteda journey to nonblock total knee arthroplasty size femur 3 tibia 3 polynine patella 29 berny- Nabor Crisostomo DO Surgeon Nabor Crisostomo DO Surgical Scrub Tech Travis BELL Estimated Blood Loss 5 Findings Consistent with Post-Op Diagnosis Patient resents with severe end-stage DJD left knee no response to conservative management 10 degree flexion contracture varus alignment [id number] eburnated bone subchondral cystic changes marginal osteophytes moderate to large effusion Specimens Bone and cartilage Drains Medium bore Hemovac Anesthesia Type MAC Spinal Regional Complications none Disposition Accompanied Patient To Recovery: No Disposition: Recovery Room Indications Patient presents after failed attempted conservative management clinic physical therapy anti-inflammatories relative rest activity modification corticosteroid injection viscosupplementation the above intraoperative findings were noted Description of Procedure After proper prepping and draping of the left lower extremity anterior midline incision was made over the region of the extensor extensor mechanism after meticulous hemostasis was obtained and maintained in subcutaneous tissues a medial parapatellar incision was made The patella was subluxed lateralward the medial lateral gutter were cleaned from any hypertrophic synovitis and scar tissue of the distal femoral block was placed and the distal femoral osteotomy cut was made subsequently the chamfers anterior and posterior osteotomy cuts were made utilizing the 4-in-1 block the tibia was subsequently subluxed anteriorward medial and ateral meniscal remnants were excised in their entirety remnants of the anterior and posterior cruciate ligaments were excised in their entirety excellent exposure of the proximal tibia was obtained the tibial osteotomy guide was placed on the proximal tibial osteotomy cut was made once again the knee was irrigated with copious amounts of sterile saline solution the patella was subsequently everted lateralward thickened scar tissue around the patella was removed the patella was subsequently cut utilizing a freehand technique and was drilled prepared for final preparation and placement of patella socially flexion-extension gaps were checked and the equal and symmetric trials were placed to the appropriate femoral and tibial trials with poly-spacer being placed for equal flexion and extension gaps and full range of motion including extension to 0 and flexion to 140 the trial components after having been taken to recovery range of motion was subsequently removed meticulous hemostasis was obtained and maintained subsequently a knee block injection of joint cocktail including ropivacaine 0.5% 150 mg. Bupivacaine 0.5% epinephrine 1-200,030 mL's toradol 30 mg dexamethasone 4 mg ketamine 10 mg clonidine 100 micrograms normal saline solution 30 mg was infiltrated into the soft tissues of the posterior knee medial lateral gutters and periosteal synovium special attention was paid to protect neurovascular structures at all times subsequently trial components having been removed the knee was irrigated with sterile saline solution. debris was removed the proximal tibia was subsequently prepared and was made ready for the placement of the tibial component tibial component was also cemented and tamped into position the femoral component was subsequently placed and cemented in the position the patellar component was subsequently cemented in position because hemostasis once again obtained and maintained wound having been thoroughly irrigated with debridement and debridement lavage was performed as well as a medial parapatellar incision closed with #1 Vicryl in interrupted fashion subcutaneous was closed with #2 Vicryl skin was closed with skin clips. PA-C was necessary for prepping and drapping as well as wound closure of deep fascia Sub cutaneous tissue and skin and was necessary for the case. A sterile compressive dressing was placed patient was taken to recovery in stable condition of report dictated by Kranthi I attest to the content of the Intraoperative Record and any orders documented therein. Any exceptions are noted below. I attest to the content of the Intraoperative Record and any orders documented therein. Any exceptions are noted below.
--- NOTE | 2021-05-02 12:02 | Anesthesiology Progress Note ---
Date of Service May 02, 2021 Anesthesia Post Procedure Vital Signs Vital Signs: Temp Pulse Pulse Resp BP Pulse Ox 05/02/21 11:49 36.5 C 76 20 96 05/02/21 08:58 36.6 C 62 18 123/71 98 05/02/21 08:09 36.8 C 73 18 159/93 H 99 Transfer of Care Handoff Completed per policy Notes Mental Status: alert / awake / arousable Patient Amnestic to Procedure: Yes Nausea / Vomiting: adequately controlled Pain: adequately controlled Airway Patency, RR, SpO2: stable & adequate BP & HR: stable & adequate Hydration State: stable & adequate Neuraxial Anesthesia: was administered and sensory block is resolving Anesthetic Complications: no major complications apparent
--- NOTE | 2021-05-02 12:25 | XRay Report ---
XR knee LT 1 or 2V routine HISTORY: 60 years-old Female Surgical Post Op left knee total joint arthroplasty COMPARISON: None TECHNIQUE: 2 views of the left knee FINDINGS: Left knee total joint arthroplasty and patella resurfacing. Surgical drainage catheter is present in addition to expected postoperative soft tissue swelling with deep tissue air. No acute fracture, clayton lignment or unexpected opaque foreign body identified. IMPRESSION: Left knee total joint arthroplasty with expected postoperative changes. ACT 112: Negative or not required by law. The above report was generated using voice recognition software. It may contain grammatical, syntax o r spelling errors. Electronically signed by: Krish Barragan M.D. 05/02/2021 12:23 PM
[2021-05-02] MEDS ORDERED: SODIUM CHLORIDE 0.9% 1000ML 1,000 ML IV SCH (15:41)
[2021-05-02] MEDS ORDERED: MAGNESIUM HYDROXIDE SUSP 30 ML UDC PO PRN (15:41)
[2021-05-02] MEDS ORDERED: bisacodyL 10 MG SUPP PR PRN (15:41)
[2021-05-02] MEDS ORDERED: NALOXONE HCL 0.4 MG/1 ML VIAL/CARP IV PRN (15:41)
[2021-05-02] MEDS ORDERED: Scopolamine CHECK PATCH PLACEMENT SCH (16:00)
[2021-05-02] MEDS: ACETAMINOPHEN 500 MG TAB PO SCH ×2 (17:49→21:18)
[2021-05-02] MEDS: ceFAZolin 2000MG 2,000 MG/15 ML SYR IV SCH (17:50)
[2021-05-02] MEDS: oxyCODONE HCL IR 5 MG TAB (IMMEDIATE RELEASE) PO PRN ×2 (19:46→23:13)
[2021-05-02] MEDS: ATORVASTATIN 10 MG TAB PO SCH (21:16)
[2021-05-02] MEDS: LORazepam 1 MG TAB PO SCH (21:16)
[2021-05-02] MEDS: CHLORTHALIDONE 25 MG TAB PO SCH (21:17)
[2021-05-02] MEDS: SENNA 8.6 MG TAB PO SCH (21:17)
[2021-05-02] MEDS: ASPIRIN 325 MG ECTAB PO SCH (21:18)
[2021-05-02] MEDS: DOCUSATE SODIUM 100 MG CAP PO SCH (21:18)
[2021-05-03] MEDS: ceFAZolin 2000MG 2,000 MG/15 ML SYR IV SCH (02:30)
[2021-05-03] MEDS: oxyCODONE HCL IR 5 MG TAB (IMMEDIATE RELEASE) PO PRN ×4 (05:52→22:57)
[2021-05-03] MEDS: ACETAMINOPHEN 500 MG TAB PO SCH ×3 (05:53→22:50)
[2021-05-03 06:10] LABS: Hematocrit (blood only) 35.5 % (37-47); Hemoglobin 12.1 g/dL (12.0-16.0); Mean Corpuscular Hemoglobin 29.8 pg (25-34); Mean Corpuscular Hgb Conc 34.1 g/dL (32-36); Mean Corpuscular Volume 87.4 fL (80-100); Mean Platelet Volume 9.2 fL (7.4-10.4); Platelet Count 235 K/uL (130-400); RDW Coefficient of Variation 13.6 % (11.5-14.5); RDW Standard Deviation 43.7 fL (36.4-46.3); Red Blood Count 4.06 M/uL (4.2-5.4); White Blood Count 12.21 K/uL (4.8-10.8)
[2021-05-03 06:36] LABS: BUN Creatinine Ratio 21.5 (10-20); Calcium 9.2 mg/dl (8.5-10.1); Creatinine Clr Calc Pharmacy 78.5 ml/min; Est GFR (African American) 86.3 ml/min; Est GFR (Non-African American) 74.5 ml/min; Potassium 3.2 mmol/L (3.5-5.1)
--- NOTE | 2021-05-03 08:33 | Orthopedic Progress Note ---
Date of Service May 03, 2021 Assessment & Plan (1) Arthritis of knee, left: Postop day 1 status post left total knee arthroplasty. Mild leukocytosis-patient asymptomatic this morning. Likely secondary to surgical stress and or preoperative steroids. PT OT protocols. Weightbearing as tolerated. DVT prophylaxis-aspirin p.o. twice daily, SERGEI Pickens. Pain management as written. DC planning patient is planning for outpatient PT upon discharge. Admission and Anticipated Discharge Date Admission Date: May 02, 2021 Subjective Postop day 1 Patient sitting up in bed. Awake and alert. States she has a little bit of a rough morning with pain control. She states she slept well however in doing so likely did not receive her pain medications. She woke up this morning with moderate pain. She was given 2 oxycodone tablets which seem to be starting to help. No other complaints this morning. Denies shortness of breath, chest pain, lightheadedness. She is hoping to go home today. Physical Exam Physical Exam: Dressings are clean, dry, and intact. Calves are soft and nontender. Neurovascular intact. Toes are mobile. She has good dorsiflexion and plantarflexion of the left foot. Hemovac drainage was 60 mL from the previous shift. Results & Data ([facility]) Vital Signs (Past 12 Hours) Vital Signs Temp Pulse Resp BP Pulse Ox 05/03/21 07:48 36.6 C 50 L 16 119/74 95 05/03/21 03:27 36.8 C 59 L 17 117/72 94 05/02/21 22:44 36.6 C 57 L 18 105/68 94 Laboratory Results Laboratory Results WBC 12.21 K/uL (4.8-10.8) H 05/03/21 05:46 RBC 4.06 M/uL (4.2-5.4) L 05/03/21 05:46 Hgb 12.1 g/dL (12.0-16.0) 05/03/21 05:46 Hct 35.5 % (37-47) L 05/03/21 05:46 MCV 87.4 fL (80-100) 05/03/21 05:46 MCH 29.8 pg (25-34) 05/03/21 05:46 MCHC 34.1 g/dL (32-36) 05/03/21 05:46 RDW Std Deviation 43.7 fL (36.4-46.3) 05/03/21 05:46 RDW Coeff of Gretta 13.6 % (11.5-14.5) 05/03/21 05:46 Plt Count 235 K/uL (130-400) 05/03/21 05:46 MPV 9.2 fL (7.4-10.4) 05/03/21 05:46 Sodium 139 mmol/L (136-145) 05/03/21 05:46 Potassium 3.2 mmol/L (3.5-5.1) L 05/03/21 05:46 Chloride 108 mmol/L (98-107) H 05/03/21 05:46 Carbon Dioxide 25 mmol/L (21-32) 05/03/21 05:46 Anion Gap 6.0 (3-11) 05/03/21 05:46 BUN 18 mg/dl (7-18) 05/03/21 05:46 Creatinine 0.84 mg/dl (0.6-1.2) 05/03/21 05:46 Est Cr Clr Drug Dosing 78.5 ml/min 05/03/21 05:46 Est GFR ( Amer) 86.3 ml/min 05/03/21 05:46 Est GFR (Non-Af Amer) 74.5 ml/min 05/03/21 05:46 BUN/Creatinine Ratio 21.5 (10-20) H 05/03/21 05:46 Glucose 175 mg/dl (70-99) H 05/03/21 05:46 Calcium 9.2 mg/dl (8.5-10.1) 05/03/21 05:46 COVID-19 Eval Order Covid19 [facility]Now [facility] 05/02/21 07:51 SARS-CoV-2, RNA, NAAT NEGATIVE (NEGATIVE) 05/02/21 07:51 Blood Type O Positive 05/02/21 07:45 Antibody Screen NEGATIVE 05/02/21 07:45 Impressions Knee X-Ray 05/02/21 12:04 XR knee LT 1 or 2V routine HISTORY: 60 years-old Female Surgical Post Op left knee total joint arthroplasty COMPARISON: None TECHNIQUE: 2 views of the left knee FINDINGS: Left knee total joint arthroplasty and patella resurfacing. Surgical drainage catheter is present in addition to expected postoperative soft tissue swelling with deep tissue air. No acute fracture, malalignment or unexpected opaque foreign body identified. IMPRESSION: Left knee total joint arthroplasty with expected postoperative changes. ACT 112: Negative or not required by law. The above report was generated using voice recognition software. It may contain grammatical, syntax or spelling errors. Electronically signed by: Krish Barragan M.D. 05/02/2021 12:23 PM
[2021-05-03] MEDS: ASPIRIN 325 MG ECTAB PO SCH ×2 (09:49→20:29)
[2021-05-03] MEDS: COLCHICINE 0.6 MG TAB PO SCH (09:50)
[2021-05-03] MEDS: PANTOprazole 40 MG TAB PO SCH (09:50)
[2021-05-03] MEDS: MULTIVITAMIN TAB PO SCH (09:50)
[2021-05-03] MEDS: CHOLECALCIFEROL 1,000 UNITS 25 MCG TAB PO SCH (09:50)
[2021-05-03] MEDS: DOCUSATE SODIUM 100 MG CAP PO SCH ×2 (09:50→20:30)
[2021-05-03] MEDS: CETIRIZINE HCL 10 MG TABLET PO SCH (09:51)
[2021-05-03] MEDS: HYDROmorphone INJ 0.5 MG/0.5 ML SYR IV PRN ×3 (09:55→20:31)
[2021-05-03] MEDS: ATORVASTATIN 10 MG TAB PO SCH (20:29)
[2021-05-03] MEDS: CHLORTHALIDONE 25 MG TAB PO SCH (20:29)
[2021-05-03] MEDS: SENNA 8.6 MG TAB PO SCH (20:30)
[2021-05-03] MEDS: LORazepam 1 MG TAB PO SCH (20:30)
[2021-05-04] MEDS: HYDROmorphone INJ 0.5 MG/0.5 ML SYR IV PRN (01:52)
[2021-05-04] MEDS: ACETAMINOPHEN 500 MG TAB PO SCH (05:43)
[2021-05-04] MEDS: oxyCODONE HCL IR 5 MG TAB (IMMEDIATE RELEASE) PO PRN ×2 (05:47→10:03)
[2021-05-04] MEDS: DOCUSATE SODIUM 100 MG CAP PO SCH (07:46)
[2021-05-04] MEDS: CETIRIZINE HCL 10 MG TABLET PO SCH (07:47)
[2021-05-04] MEDS: ASPIRIN 325 MG ECTAB PO SCH (07:47)
[2021-05-04] MEDS: COLCHICINE 0.6 MG TAB PO SCH (07:47)
[2021-05-04] MEDS: PANTOprazole 40 MG TAB PO SCH (07:47)
[2021-05-04] MEDS: CHOLECALCIFEROL 1,000 UNITS 25 MCG TAB PO SCH (07:47)
[2021-05-04] MEDS: MULTIVITAMIN TAB PO SCH (07:47)
[2021-05-04 10:26] LABS: BUN Creatinine Ratio 25.4 (10-20); Calcium 9.2 mg/dl (8.5-10.1); Creatinine Clr Calc Pharmacy 63.4 ml/min; Est GFR (African American) 66.7 ml/min; Est GFR (Non-African American) 57.5 ml/min
[2021-05-04] MEDS ORDERED: POTASSIUM CHLORIDE CRTAB 20 MEQ TABCR PO STA (10:34)
--- NOTE | 2021-05-04 10:52 | Orthopedic Progress Note ---
Date of Service May 04, 2021 Assessment & Plan (1) Arthritis of knee, left: Postop day 2 status post left total knee arthroplasty. Hypokalemia-I spoke to internal medicine this morning. Patient remaining asymptomatic and we will start her on potassium 40 meq p.o. now, and then start her 20 meq p.o. daily. She will have her BMP rechecked on 05/07/2021 with results being sent to her primary care physician. She will need to follow-up with her primary care physician in a week. PT OT protocols. Weightbearing as tolerated. DVT prophylaxis-aspirin p.o. twice daily, Celio, SERGEI rivera. Pain management as written. DC planning patient is planning for outpatient PT upon discharge. Admission and Anticipated Discharge Date Admission Date: May 02, 2021 Subjective Postop day 2 Patient seen earlier this morning while doing her physical therapy session. She was having some discomfort. I stop back several hours later to check on her after her PT protocols. She states that she is doing much better now with her pain control and is hoping to go home today. I discussed with her that we had noted that she had a mildly low potassium level of 3.2 the day before. She stated that she tends to run low at times. We discussed that she was going to have another blood draw today to recheck her potassium level. She has no new complaints today. She is feeling well. Pain is controlled. Physical Exam Physical Exam: Dressings are clean, dry, and intact. Calves are soft nont johnson. Neurovascular intact. Toes are mobile. Results & Data ([facility]) Vital Signs (Past 12 Hours) Vital Signs Temp Pulse Resp BP Pulse Ox 05/04/21 06:14 36.9 C 68 18 116/76 99 Laboratory Results 05/04/21 Range/Units 09:17 Sodium 138 (136-145) mmol/L Potassium 3.0 L (3.5-5.1) mmol/L Chloride 105 (98-107) mmol/L Carbon Dioxide 25 (21-32) mmol/L Anion Gap 8.0 (3-11) BUN 26 H (7-18) mg/dl Creatinine 1.04 (0.6-1.2) mg/dl Est Cr Clr Drug Dosing 63.4 ml/min Est GFR ( Amer) 66.7 ml/min Est GFR (Non-Af Amer) 57.5 ml/min BUN/Creatinine Ratio 25.4 H (10-20) Glucose 168 H (70-99) mg/dl Calcium 9.2 (8.5-10.1) mg/dl
--- NOTE | 2021-05-16 07:48 | Discharge Summary ---
Date of Service May 16, 2021 Admission HPI Per Admitting Provider Shanthi is a 60 year old female who complains of left knee pain, presents for pre-op evaluation prior to a left total knee replacement by dr Crisostomo at [facility]. She complains of pain, crepitus, decreased range of motion, instability and stiffness in her left knee. she states that the symptoms have been chronic and non-traumatic. She states that the symptoms occur constantly with intermittent worsening. Currently the patient states that the symptoms are moderate-severe. The pain is described as aching, sharp and throbbing. The symptoms occur continuously. The symptoms are aggravated by ascending stairs, daily activities, first steps while awake walking. Prior NSAIDs include Ibuprofen and Aleve, At this point, her pain is affecting her ADLS and would like to proceed with a left total knee replacement. Admission Exam Per Admitting Provider Physical Exam: HT: 5ft 3in WT: 99.79kg Constitutional: WD/WN, vitals as above no acute distress Respiratory: normal respiratory effort, lungs clear to auscultation no respiratory distress, no labored breathing and does not use accessory muscles Cardiovascular: RRR, no murmur, no edema Gastrointestinal (Abdomen): normal bowel sounds, soft, nontender, no hepatosplenomegaly Musculoskeletal: Knee: + knee abnormal to inspection (LEFT KNEE: ), + effusion (+1 effusion), + limited ROM of knee (ROM 0/3/110), + knee ROM with crepitation, + joint line tenderness (medial joint line) and + Chemo's sign positive; no deformity, no skin erythema, no ecchymosis, no valgus laxity, no varus laxity, anterior drawer test negative, Jesusita's sign negative and pivot shift test negative Principal Diagnosis Left knee osteoarthritis Discharge Exam Date of Service May 04, 2021 Assessment & Plan (1) Arthritis of knee, left: Postop day 2 status post left total knee arthroplasty. Hypokalemia-I spoke to internal medicine this morning. Patient remaining asymptomatic and we will start her on potassium 40 meq p.o. now, and then start her 20 meq p.o. daily. She will have her BMP rechecked on 05/07/2021 with results being sent to her primary care physician. She will need to follow-up with her primary care physician in a week. PT OT protocols. Weightbearing as tolerated. DVT prophylaxis-aspirin p.o. twice daily, Celio, SERGEI rivera. Pain management as written. DC planning patient is planning for outpatient PT upon discharge. Admission and Anticipated Discharge Date Admission Date: May 02, 2021 Subjective Postop day 2 Patient seen earlier this morning while doing her physical therapy session. She was having some discomfort. I stop back several hours later to check on her after her PT protocols. She states that she is doing much better now with her pain control and is hoping to go home today. I discussed with her that we had noted that she had a mildly low potassium level of 3.2 the day before. She stated that she tends to run low at times. We discussed that she was going to have another blood draw today to recheck her potassium level. She has no new complaints today. She is feeling well. Pain is controlled. Physical Exam Physical Exam: Dressings are clean, dry, and intact. Calves are soft nontender. Neurovascular intact. Toes are mobile. Results & Data ([facility]) Vital Signs (Past 12 Hours) Vital Signs Temp Pulse Resp BP Pulse Ox 05/04/21 06:14 36.9 C 68 18 116/76 99 Laboratory Results 05/04/21 Range/Units 09:17 Sodium 138 (136-145) mmol/L Potassium 3.0 L (3.5-5.1) mmol/L Chloride 105 (98-107) mmol/L Carbon Dioxide 25 (21-32) mmol/L Anion Gap 8.0 (3-11) BUN 26 H (7-18) mg/dl Creatinine 1.04 (0.6-1.2) mg/dl Discharge Data Allergies Allergy/AdvReac Type Severity Reaction Status Date / Time LILIAN Inhibitors Allergy Severe Angioedema Verified 05/02/21 08:06 ibuprofen Allergy Severe Angioedema Verified 05/02/21 08:06 naproxen AdvReac Severe PVC's Verified 05/02/21 08:06 hydrochlorothiazide AdvReac Intermediate Photosensitivity Verified 05/02/21 08:06 reaction Procedures Performed Operation Date: 05/02/21 10:00 Actual Procedures p Left Total Knee Arthroplasty(Left) - Nabor Crisostomo DO Ordered Studies 05/02/21 05:00 US - OR guided needle placemen Routine Hospital Course (1) Arthritis of knee, left: Patient was admitted on the above-noted date and had the above-noted surgery performed which she tolerated well.On her 1st postoperative day, the patient was awake and alert. She complained of having trouble with pain control. No other complaints at that time. Denies shortness of breath, chest pain or lightheadedness. Dressings were clean, dry, and intact. Calves were soft and nontender. Neurovascular was intact and toes are mobile. Vital signs were stable and she was afebrile. Hemoglobin was 12.1. Mild hypokalemia of 3.2. She was started on PT and OT protocols and continued on DVT prophylaxis and pain management. She was seen later that afternoon and she was still requiring IV pain medication for her pain control. She was continued on her current protocols and plans were to recheck her the following morning. By her 2nd postoperative day, she was having some discomfort and was going through her physical therapy session at that time. Stopping back several hours later, she was doing much better with her pain control and was hoping to go home. It was noted that she had a low potassium level of 3.2 initially and then dropped down to 3.0. She had no complaints and was feeling otherwise well. Dressings were clean, dry, and intact. Calves were soft and nontender. Neurovascular is intact. I discussed her hypokalemia with internal medicine that morning. She was given a one-time dose of 40 mEq at that time. Was recommended also to start her on 20 mEq p.o. daily for 1 week. Ends were to have a BMP rechecked on 05/07/2021 with results being sent to her primary care physician and for her to follow-up with her primary care physician in 1 week. She was otherwise remaining stable and was felt she be discharged home. Total Time Total Time Spent Total Time Spent (In Minutes): 5 Discharge Plan Discharge Items Patient Disposition: Home - Self-Care Reason For Visit: Unilateral Primary Osteoarthritis Knee Left Discharge Diagnosis: Osteoarthritis left knee Activity: Per Instructions section Weightbearing: Left weightbearing Weightbearing Comment: As tolerated with walker Non-emergency contact: Surgeon Call non-emergency contact if: your pain is not controlled, your temperature is above 101.5, your wound has increased redness and your wound has increased drainage Follow-up/Referrals: Jared Meraz MD [Primary Care Provider] - Diet: Regular Ambulatory Orders: Basic Metabolic Panel (Routine) Timeframe: [id number] Location: Determined by Patient Ordered By: Travis Oliva Attending Provider Instructions: Your potassium was low during this visit. You will be taking 20 mEq (1 tablet) orally daily. You have been given a prescription for a blood draw to be done on 05/07/2021 to recheck your potassium level. Please have them call the results to your primary care physician. ACTIVITY RECOMMENDATIONS: SELF CARE INSTRUCTIONS AFTER TOTAL KNEE REPLACEMENT A. You may need to continue a physical therapy program after discharge from the hospital. There are several options available to you. Your doctor will assist you in selecting the best one for you. 1. An out-patient facility 2 to 3 times a week for therapy or home therapy. 2. Continue working on all exercises taught to you in the hospital. Your goals should be to increase bending of your knee to 90 degrees and beyond and to fully straighten your knee. B. You may progress at your own pace from walking with a walker or crutches to a cane; then to no assistive devices. C. Make walking a part of your daily routine. Be up as much as comfortable with rest periods throughout the day. Rest with leg elevation is very important. Use the ice wrap frequently for the first 3-4 weeks. D. There are no restrictions on activities. You may ride in a car, shop, participate in lamp tester and inspector and all social activities. E. Wear the long elastic stockings (SERGEI hose) 20 hours a day for 2 weeks after surgery. They can be removed several times a day for laundering and for a bath. F. You may shower, no tub baths until cleared by your doctor. SPECIAL CARE INSTRUCTIONS: VERY IMPORTANT TO READ AND REVIEW A. There are a few signs you need to watch for after you are home. Call [facility] if you notice any of the followin. Increased severe knee pain. Some pain is expected especially when you exercise. 2. Increased swelling in your leg or knee; pain or swelling of the calf muscle in either lower leg. 3. Any fluid drainage from the incision. 4. Shortness of breath or chest pain. B. Please call [facility] at if you have any concerns or questions about your operation or recovery. The doctor or his nurse will return your call promptly. C. You must take antibiotics before dental work, bladder, bowel or other surgery. Your doctor will provide you with a permanent care to carry describing this precaution. IMPORTANT: * REMEMBER TO TAKE ASPIRIN, 325 MG, TWICE DAILY FOR 4 WEEKS UNLESS OTHERWISE DIRECTED. THIS IS YOUR BLOOD THINNER. * HIGH RISK PATIENTS MAY BE PRESCRIBED A STRONGER BLOOD THINNER. THIS WILL BE PROVIDED AT DISCHARGE. * CALL IF INCREASED PAIN, REDNESS, DRAINAGE OR FEVER GREATER THAT 101. * WEAR SERGEI HOSE 20 HOURS PER DAY FOR 2 WEEKS. * DERMABOND Prineo- This is a mesh tape dressing that is covered with glue. It should remain in place until the incision is properly healed, usually 10-14 days. This dressing is designed to naturally slough off. You may trim the excess mesh tape as it peels off. Incision may be briefly wet in a shower. Dry immediately by blotting with a clean, dry towel. Do not bath or swim until instructed by your doctor. Do not scratch, rub, or pick at the dressing. Do not apply any topical ointments or lotions until dressing is completely removed and/or instructed by your doctor. There may be a small piece of suture material at one end of your incision. Do not pull or trim this. If it is bothersome or catching on clothing, you may cover it with a band-aid. Call the office with any questions about your wound. . FOLLOW UP VISIT: If appointment is not already scheduled: Please call [facility] to make a follow-up appointment for 2 weeks after your surgery at . Please follow-up with your primary care physician in 1 week concerning your potassium level. Stand-Alone Forms: [facility], Opioid Pain Management, Smoking Cessation Medications and DC Order Prescriptions: New acetaminophen 500 mg Tablet 1,000 mg PO Q8 14 Days Qty: 84 RF: 0 cefadroxil 500 mg capsule 500 mg PO BID Qty: 28 RF: 1 oxycodone 5 mg Tablet 5 mg PO Q4H MDD 6 PRN (Reason: pain) Qty: 30 RF: 0 polyethylene glycol 3350 [Miralax] 17 gram powder in packet 17 g PO DAILY PRN (Reason: constipation) Qty: 5 RF: 0 potassium chloride 20 mEq packet 20 meq PO DAILY Qty: 7 RF: 0 Continued ascorbic acid (vitamin C) [Vitamin C] 1,000 mg Tablet 1 g PO QAM RF: 0 chlorthalidone 15 mg Tablet 15 mg PO QPM RF: 0 cholecalciferol (vitamin D3) [Vitamin D3] 25 mcg (1,000 unit) Tablet 25 mcg PO QAM RF: 0 cetirizine [Zyrtec] 10 mg Tablet 10 mg PO QAM RF: 0 omeprazole magnesium [Prilosec OTC] 20 mg Tablet,Delayed Release (Dr/Ec) 1 tab PO QAM PRN (Reason: gerd) RF: 0 atorvastatin 10 mg Tablet 10 mg PO PM RF: 0 colchicine 0.6 mg Tablet 0.3 mg PO QAM RF: 0 lorazepam 1 mg Tablet 1 mg PO HS RF: 0 aspirin 325 mg Tablet 325 mg PO BID RF: 0 Discharge Orders: Discharge Order (Routine); Ordered 05/04/21 Ordered By: Travis Culp/Other Patient Handouts: DVT Post Op Prevention Admission Data Admit Date/Time: 05/02/21 12:04 Attending Provider: Nabor Crisostomo Admit Provider: Nabor Crisostomo Primary Care Provider: Jared Meraz Other Interventions: Discharge Summary Assessment (RN) Last Done: 05/04/21 11:16
== END 2021-05-04 12:53 | disposition home or self-care (01) ==
LOC: ASU 07:35 → 3E 07:35